=== PATIENT | male | born 1940 | race Caucasian/White ===

== ENCOUNTER 2017-06-16 06:34 | Emergency (ER) | payer MEDICARE ==
[2017-06-16 06:57] LABS: BASOPHILS 0.1 % (0-2); EOSINOPHILS 0.4 % (0-7); HEMOGLOBIN 15.8 g/dL (13.5-17.5); IMMATURE GRANULOCYTES 0.1 % (0-5); LYMPHOCYTES 16.5 % (15-50); MCH 33.2 pg (26.0-34.0); MCHC 35.9 g/dL (31.0-37.0); MCV 92.4 fL (80.0-100.0); MEAN PLATELET VOLUME 9.4 fL (7.4-10.4); MONOCYTES 4.2 % (2-11); NEUTROPHILS 78.7 % (40-80); PLATELET COUNT 251 10x3/uL (130-400); RBC 4.76 10x6/uL (4.20-6.10); RDW 12.3 % (11.5-14.5); WBC 9.6 10x3/uL (4.8-10.8)
[2017-06-16 07:10] LABS: ALBUMIN 3.9 g/dL (3.4-5.0); ANION GAP 16.5 mmol/L (8-16); CALCIUM 9.1 mg/dL (8.5-10.1); CARBON DIOXIDE 22.4 mmol/L (21.0-32.0); CREATININE - SERUM 1.1 mg/dL (0.6-1.3); POTASSIUM - SERUM 3.9 mmol/L (3.5-5.1); PROTEIN - SERUM 7.3 g/dL (6.4-8.2)
[2017-06-16 07:36] LABS: CREATINE KINASE 246 UL (21-232); MAGNESIUM - SERUM 1.8 mg/dL (1.8-2.4); T4 THYROXIN - FREE 1.09 ng/dL (0.76-1.46); THYROID STIMULATING HORMONE 4.52 uIU/mL (0.36-3.74)
[2017-06-16 07:40] LABS: TROPONIN-I 0.377 ng/mL (0.000-0.060)
[2017-06-16 07:41] LABS: CKMB 6.4 U/L (0.0-3.6)
[2017-06-16 07:48] LABS: INR 0.94 (0.85-1.17); PROTIME 12.2 SECONDS (11.6-15.0)
[2017-06-16 07:49] LABS: APTT 28.6 SECONDS (22.8-39.4)
[2017-06-16 13:13] LABS: APPEARANCE HAZY (CLEAR); COLOR YELLOW (YELLOW)
[2017-06-16 13:14] LABS: BACTERIA FEW /hpf (NONE SEEN); BILIRUBIN NEGATIVE (NEGATIVE); EPITHELIAL CELLS OCC /hpf (0-5); GLUCOSE NEGATIVE (NEGATIVE); KETONE SMALL mg/dL (NEGATIVE); MUCUS <1+ /lpf (NONE SEEN); NITRITE NEGATIVE (NEGATIVE); PROTEIN NEGATIVE (NEGATIVE); SPECIFIC GRAVITY 1.005 (1.005-1.020); UROBILINOGEN NORMAL (NORMAL); WHITE CELLS - URINE OCC /hpf (0-5)
--- NOTE | 2017-06-24 10:00 | EC ---
PATIENT:JAMSHID SANCHEZ DATE OF SERVICE: 06/16/17 SEX: M MEDICAL RECORD: [id number] DATE OF : 40 LOCATION:D.ER AGE OF PATIENT: 77 ADMISSION DATE: 06/16/17 REFERRING PHYSICIAN: INTERPRETING PHYSICIAN: MILDRED GALARZA MD ECHOCARDIOGRAM REPORT ECHO CHARGES 4 ECHO COMPLETE CLINICAL DIAGNOSIS: AFIB ECHOCARDIOGRAPHIC MEASUREMENTS (adult normal given) AC root (d.<3.7cm) 4.2 cm LV Septum d (<1.2 cm> 1.2 cm Valve Excursion 2.2 cm LV Septum (systole) 1.5 cm Left Atria (s.<4.0cm> 4.4 cm LVPW d(<1.2cm) 1.5 cm RV (d.<2.3cm) 4.4 cm LVPW (sytole) 1.7 cm LV diastole(<5.6CM) 6.0 cm MV E-F(>70mm/sec) cm LV systole 3.7 cm LVOT Diameter 1.8 cm MV exc.(>10mm) 1.4 cm Est.ejection fraction (50-75%) % Pericardial Effusion N DOPPLER: LVIT cm/sec A 95.0 cm/sec E 105 cm/sec LA cm/sec RVSP 26 mmHg LVOT 106 cm/sec AOP1/2T m/s Asc. Ao 1335 cm/sec RVOT 83 cm/sec RA cm/sec PA 102 cm/sec AV Gradient Peak 7.32 mmHg AV Mean 3.54 mmHg AV Area 2.3 cm MV Gradient Peak 5.52 mmHg MV Mean 2.14 mmHg MV Area cm COMMENTS: Production Operations Inspector: 2 JOSE GUTIERREZ Storage Solutions Architect: 4 Dr. Galarza TAPE# PACS DATE OF SERVICE: 06/16/2017 PROCEDURE: Transthoracic echocardiogram. FINDINGS: 1. Echo was difficult to visualize sharply the endocardial surfaces, but overall the structures were qualitative. 2. The left ventricle shows evidence of mild concentric left ventricular hypertrophy with inflow characteristics that are normal. The overall ejection fraction is 55%. There is no obvious regional wall motion abnormalities. ECHOCARDIOGRAM REPORT [id number] JAMSHID SANCHEZ 3. The left atrium is moderately dilated. 4. The aortic valve is grossly normal. 5. The mitral valve has mild mitral regurgitation. 6. Tricuspid valve has mild tricuspid regurgitation with normal right ventricular systolic pressures. 7. The right atrium is normal. 8. The right ventricle is mildly dilated. CONCLUSIONS: The patient has no obvious structural or valvular abnormalities with some evidence of hypertensive heart disease. TRANSINT:[id number] Voice Confirmation ID: [id number] DOCUMENT ID: [id number] 06/23/2017 Edited to correct date of service, dmm. MILDRED GALARZA MD at 1000 CC: [id number] DICTATION DATE: 06/18/17 1041 USED CAR LOT ATTENDANT: 06/18/17 1054 DEP ER 06/16/17 [facility] [address] [place] [address]
== END 2017-06-16 19:47 | disposition other institution (70) ==
LOC: D.ER 06:34
PROVIDERS: Emergency Medicine
DX: I48.91 Unspecified atrial fibrillation (principal); I10 Essential (primary) hypertension; I49.3 Ventricular premature depolarization; I63.8 Other cerebral infarction; G81.94 Hemiplegia, unspecified affecting left nondominant side

== ENCOUNTER 2018-06-23 19:01 | Emergency (ER) | payer MEDICARE ==
[~2018-06-23] VITALS: Ht 172.7 cm; Wt 81.8 kg
[2018-06-23 19:02] VITALS: Ht 172.7 cm; Wt 81.8 kg
[2018-06-23] MEDS ORDERED: LIPITOR20 MG PO (19:06)
[2018-06-23] MEDS ORDERED: NORVASC2.5 MG PO (19:06)
[2018-06-23] MEDS ORDERED: VITAMIN D2000 UNIT PO (19:07)
[2018-06-23] MEDS ORDERED: ELIQUIS5 MG PO (19:07)
[2018-06-23 21:30] LABS: BASOPHILS 0.3 % (0-2); EOSINOPHILS 1.1 % (0-7); HEMATOCRIT 42.5 % (42.0-54.0); HEMOGLOBIN 15.1 g/dL (13.5-17.5); IMMATURE GRANULOCYTES 0.3 % (0-5); LYMPHOCYTES 23.6 % (15-50); MCH 32.1 pg (26.0-34.0); MCHC 35.5 g/dL (31.0-37.0); MCV 90.2 fL (80.0-100.0); MEAN PLATELET VOLUME 9.9 fL (7.4-10.4); MONOCYTES 7.7 % (2-11); PLATELET COUNT 228 10x3/uL (130-400); RBC 4.71 10x6/uL (4.20-6.10); RDW 12.5 % (11.5-14.5); WBC 10.4 10x3/uL (4.8-10.8)
[2018-06-23 21:43] LABS: APTT 31.7 SECONDS (22.8-39.4); INR 1.09 (0.85-1.17); PROTIME 13.6 SECONDS (11.6-15.0)
[2018-06-23 21:48] LABS: ALBUMIN 3.7 g/dL (3.4-5.0); ALKALINE PHOSPHATASE 266 U/L (46-116); ALT (SGPT) 34 U/L (10-68); BILIRUBIN - TOTAL 0.96 mg/dL (0.2-1.3); CALC OSMOLALITY 279 mosm/kg (275-300); CALCIUM 9.3 mg/dL (8.5-10.1); CARBON DIOXIDE 27.7 mmol/L (21.0-32.0); CHLORIDE - SERUM 103 mmol/L (98-107); CREATININE - SERUM 0.9 mg/dL (0.6-1.3); GLUCOSE 94 mg/dL (74-106); PROTEIN - SERUM 7.3 g/dL (6.4-8.2); SODIUM 140 mmol/L (136-145); UREA NITROGEN 16 mg/dL (7-18); eGFR NON AFRICAN AMERICAN 87 mL/min (90-120)
[2018-06-23 21:59] LABS: CKMB 8.2 U/L (0.0-3.6); CREATINE KINASE 291 UL (21-232); MAGNESIUM - SERUM 1.9 mg/dL (1.8-2.4); TROPONIN-I 0.017 ng/mL (0.000-0.060)
[2018-06-23 23:11] VITALS: BP 160/92
== END 2018-06-23 23:10 | disposition home or self-care (01) ==
LOC: D.ER 19:01
PROVIDERS: Family Medicine
DX: I10 Essential (primary) hypertension (principal); R00.2 Palpitations; Z86.73 Personal history of transient ischemic attack (TIA), and cerebral infarction without residual deficits

== ENCOUNTER 2020-01-11 15:18 | Emergency (ER) | payer MEDICARE ==
[~2020-01-11] VITALS: Ht 172.7 cm; Wt 81.8 kg
[~2020-01-11 15:18] MED LIST: ELIQUIS5 MG PO; LIPITOR20 MG PO; NORVASC2.5 MG PO; VITAMIN D2000 UNIT PO
[2020-01-11 15:27] VITALS: Ht 172.7 cm; Wt 81.8 kg
[2020-01-11] MEDS ORDERED: CATAPRES0.1 MG PO (15:33)
[2020-01-11] MEDS ORDERED: PACERONE200 MG PO (15:34)
[2020-01-11] MEDS ORDERED: HYDRALAZINE HCL25 MG PO ×2 (15:34→18:49)
[2020-01-11 16:17] LABS: BASOPHILS 0.3 % (0-2); EOSINOPHILS 0.3 % (0-7); HEMATOCRIT 43.6 % (42.0-54.0); IMMATURE GRANULOCYTES 0.6 % (0-5); LYMPHOCYTES 15.6 % (15-50); MCH 32.4 pg (26.0-34.0); MCHC 34.4 g/dL (31.0-37.0); MCV 94.2 fL (80.0-100.0); MEAN PLATELET VOLUME 9.4 fL (7.4-10.4); MONOCYTES 5.2 % (2-11); PLATELET COUNT 203 10x3/uL (130-400); RBC 4.63 10x6/uL (4.20-6.10); RDW 13.6 % (11.5-14.5)
[2020-01-11 16:32] LABS: INR 0.97 (0.85-1.17); PROTIME 12.9 SECONDS (11.6-15.0)
[2020-01-11 16:33] LABS: CALC OSMOLALITY 259 mosm/kg (275-300); CALCIUM 9.3 mg/dL (8.5-10.1); CARBON DIOXIDE 30.3 mmol/L (21.0-32.0); CHLORIDE - SERUM 96 mmol/L (98-107); GLUCOSE 99 mg/dL (74-106); POTASSIUM - SERUM 3.8 mmol/L (3.5-5.1); SODIUM 130 mmol/L (136-145); UREA NITROGEN 9 mg/dL (7-18); eGFR NON AFRICAN AMERICAN 76 mL/min (90-120)
[2020-01-11 16:47] LABS: ALBUMIN 4.2 g/dL (3.4-5.0); ALKALINE PHOSPHATASE 190 U/L (30-120); ALT (SGPT) 37 U/L (10-68); BILIRUBIN - TOTAL 1.04 mg/dL (0.2-1.3); CREATINE KINASE 406 UL (21-232); MAGNESIUM - SERUM 2.1 mg/dL (1.8-2.4); PROTEIN - SERUM 7.4 g/dL (6.4-8.2)
[2020-01-11 16:51] LABS: TROPONIN-I < 0.017 ng/mL (0.000-0.060)
[2020-01-11 17:51] LABS: NITRITE NEGATIVE (NEGATIVE)
[2020-01-11 17:52] LABS: BILIRUBIN NEGATIVE (NEGATIVE); GLUCOSE NEGATIVE (NEGATIVE); KETONE NEGATIVE (NEGATIVE); UROBILINOGEN NORMAL (NORMAL)
[2020-01-11 19:05] VITALS: BP 155/78
== END 2020-01-11 19:02 | disposition home or self-care (01) ==
LOC: D.ER 15:18
PROVIDERS: Family Medicine
DX: E87.1 Hypo-osmolality and hyponatremia (principal); I10 Essential (primary) hypertension; Z86.73 Personal history of transient ischemic attack (TIA), and cerebral infarction without residual deficits; R42 Dizziness and giddiness

== ENCOUNTER 2020-01-14 21:52 | Emergency (ER) | payer MEDICARE ==
[~2020-01-14] VITALS: Ht 172.7 cm; Wt 83.6 kg
[~2020-01-14 21:52] MED LIST changes: +CATAPRES0.1 MG PO; +HYDRALAZINE HCL25 MG PO; +PACERONE200 MG PO
[2020-01-14 21:59] VITALS: Ht 172.7 cm; Wt 83.6 kg
[2020-01-14] MEDS ORDERED: HYDROCHLOROTHIA25 MG PO (22:26)
[2020-01-14 22:36] VITALS: BP 157/79
== END 2020-01-14 22:37 | disposition home or self-care (01) ==
LOC: D.ER 21:52
DX: I10 Essential (primary) hypertension (principal); Z86.73 Personal history of transient ischemic attack (TIA), and cerebral infarction without residual deficits

== ENCOUNTER 2020-01-21 08:43 | Inpatient (IN) | payer MEDICARE ==
[~2020-01-21] VITALS: Ht 172.7 cm; Wt 81.8 kg
[~2020-01-21 08:43] MED LIST changes: +HYDROCHLOROTHIA25 MG PO; +VITAMIN D1000 UNIT PO; -VITAMIN D2000 UNIT PO
[2020-01-21 09:30] VITALS: BP 160/78
[2020-01-21 10:02] LABS: BASOPHILS 0.1 % (0-2); EOSINOPHILS 0.2 % (0-7); HEMOGLOBIN 15.8 g/dL (13.5-17.5); IMMATURE GRANULOCYTES 0.7 % (0-5); LYMPHOCYTES 10.9 % (15-50); MCH 32.8 pg (26.0-34.0); MCHC 36.7 g/dL (31.0-37.0); MCV 89.4 fL (80.0-100.0); MEAN PLATELET VOLUME 9.4 fL (7.4-10.4); MONOCYTES 7.9 % (2-11); NEUTROPHILS 80.2 % (40-80); RBC 4.81 10x6/uL (4.20-6.10); RDW 12.9 % (11.5-14.5); WBC 10.1 10x3/uL (4.8-10.8)
[2020-01-21 10:03] LABS: CALC OSMOLALITY 246 mosm/kg (275-300); CALCIUM 9.1 mg/dL (8.5-10.1); CARBON DIOXIDE 28.9 mmol/L (21.0-32.0); CHLORIDE - SERUM 87 mmol/L (98-107); CREATININE - SERUM 1.1 mg/dL (0.6-1.3); GLUCOSE 136 mg/dL (74-106); INR 1.08 (0.85-1.17); SODIUM 122 mmol/L (136-145); UREA NITROGEN 9 mg/dL (7-18); eGFR NON AFRICAN AMERICAN 68 mL/min (90-120)
[2020-01-21 10:04] LABS: APTT 34.7 SECONDS (22.8-39.4)
[2020-01-21 10:06] LABS: PLATELET COUNT 245 10x3/uL (130-400)
[2020-01-21 10:18] LABS: ALKALINE PHOSPHATASE 170 U/L (30-120); ALT (SGPT) 38 U/L (10-68); BILIRUBIN - TOTAL 1.69 mg/dL (0.2-1.3); CKMB 11.5 U/L (0.0-3.6); CREATINE KINASE 385 UL (21-232); PROTEIN - SERUM 7.2 g/dL (6.4-8.2)
[2020-01-21 10:19] LABS: TROPONIN-I < 0.017 ng/mL (0.000-0.060)
--- NOTE | 2020-01-21 12:20 | NUR ---
URINE TO LAB
[2020-01-21 12:21] LABS: T4 THYROXIN - FREE 0.45 ng/dL (0.76-1.46); T4 THYROXINE 5.3 ug/dL (4.7-13.3)
[2020-01-21 12:23] VITALS: BP 172/87
[2020-01-21 12:30] VITALS: BP 160/83
[2020-01-21 12:53] LABS: BILIRUBIN NEGATIVE (NEGATIVE); GLUCOSE NEGATIVE (NEGATIVE); KETONE NEGATIVE (NEGATIVE); NITRITE NEGATIVE (NEGATIVE); UROBILINOGEN NORMAL (NORMAL)
[2020-01-21 13:07] LABS: UDS - AMPHET NEGATIVE QUAL (NEGATIVE); UDS - BARB NEGATIVE QUAL (NEGATIVE); UDS - BENZO NEGATIVE QUAL (NEGATIVE); UDS - COCAINE NEGATIVE QUAL (NEGATIVE); UDS - OPIATE NEGATIVE QUAL (NEGATIVE); UDS - PCP NEGATIVE QUAL (NEGATIVE); UDS - THC NEGATIVE QUAL (NEGATIVE)
[2020-01-21 13:30] VITALS: BP 145/79
--- NOTE | 2020-01-21 14:33 | NUR ---
ARRIVED FROM ER VIA WHEELCHAIR. SPOUSE AT BEDSIDE. ALERT AND ORIENTED. NO SIGNS OF DISTRESS. REFUSES SCD'S, TAKES ELIQUIS.
[2020-01-21 15:21] VITALS: BP 164/84; Ht 172.7 cm; Wt 81.8 kg
--- NOTE | 2020-01-21 19:00 | NUR ---
REPORT RECEIVED, WILL CONTINUE POC. PATIENT IS AAOX4, SITTING UP IN BED, AT BEDSIDE. NO S/S OF DISTRESS OBSERVED, RR EVEN AND UNLABORED ON ROOM AIR. PATIENT DENIES NEEDS AT THIS TIME. CL IN REACH, BED LOCKED AND LOWERED. WILL CTM.
[2020-01-21 20:00] VITALS: BP 160/75
[2020-01-22 00:59] VITALS: BP 135/74
--- NOTE | 2020-01-22 04:12 | NUR ---
I have reviewed this patient and I concur with the Shift Assessment completed by the Licensed Practical Nurse today this shift.
[2020-01-22 05:11] VITALS: BP 152/85
[2020-01-22 06:12] LABS: BASOPHILS 0.1 % (0-2); EOSINOPHILS 0.3 % (0-7); HEMATOCRIT 40.6 % (42.0-54.0); HEMOGLOBIN 14.5 g/dL (13.5-17.5); IMMATURE GRANULOCYTES 0.7 % (0-5); LYMPHOCYTES 18.3 % (15-50); MCH 32.2 pg (26.0-34.0); MCHC 35.7 g/dL (31.0-37.0); MEAN PLATELET VOLUME 9.6 fL (7.4-10.4); MONOCYTES 9.5 % (2-11); NEUTROPHILS 71.1 % (40-80); PLATELET COUNT 245 10x3/uL (130-400); RBC 4.51 10x6/uL (4.20-6.10); RDW 13.3 % (11.5-14.5); WBC 9.6 10x3/uL (4.8-10.8)
[2020-01-22 06:41] LABS: ALBUMIN 3.6 g/dL (3.4-5.0); ALKALINE PHOSPHATASE 157 U/L (30-120); ALT (SGPT) 34 U/L (10-68); BILIRUBIN - TOTAL 1.26 mg/dL (0.2-1.3); CALC OSMOLALITY 257 mosm/kg (275-300); CALCIUM 8.1 mg/dL (8.5-10.1); CARBON DIOXIDE 27.1 mmol/L (21.0-32.0); CHLORIDE - SERUM 94 mmol/L (98-107); GLUCOSE 96 mg/dL (74-106); POTASSIUM - SERUM 3.5 mmol/L (3.5-5.1); PROTEIN - SERUM 6.5 g/dL (6.4-8.2); SODIUM 129 mmol/L (136-145); UREA NITROGEN 11 mg/dL (7-18); eGFR NON AFRICAN AMERICAN 76 mL/min (90-120)
--- NOTE | 2020-01-22 07:15 | NUR ---
RECEIVE BEDSIDE SHIFT REPORT. ALERT AND ORIENTED. AT BEDSIDE. NO SIGNS OF DISTRESS. WILL CONTINUE PLAN OF CARE AND SAFETY PRECAUTIONS.
[2020-01-22 08:00] VITALS: BP 156/84
[2020-01-22 09:26] LABS: CKMB 6.9 U/L (0.0-3.6)
[2020-01-22 09:28] LABS: CREATINE KINASE 268 UL (21-232)
[2020-01-22 11:00] VITALS: BP 155/79
--- NOTE | 2020-01-22 12:59 | NUR ---
PATIENT STATES HE HAS RINGING IN HIS EARS AND IS FEELING FLUSHED. NEW MEDS GIVEN THIS AM WERE PROTONIX AND SYNTHROID. CALLED LALY SAUCEDO APN, SHE SAID CONTINUE TO MONITOR.
[2020-01-22 15:00] VITALS: BP 167/85
--- NOTE | 2020-01-22 19:00 | NUR ---
REPORT RECEIVED, WILL CONTINUE POC. PATIENT IS AAOX4, SITTING ON SIDE OF BED. NO S/S OF DISTRESS OBSERVED, RR EVEN AND UNLABORED ON ROOM AIR. PATIENT GETTING READY TO GET IN SHOWER. PATIENT DENIES FURTHER NEEDS AT THIS TIME. CL IN REACH, BED LOCKED AND LOWERED. AT BEDSIDE. WILL CTM.
[2020-01-22 20:00] VITALS: BP 178/85
[2020-01-23] VITALS: BP 172/97
[2020-01-23 04:00] VITALS: BP 175/85
--- NOTE | 2020-01-23 04:03 | NUR ---
I have reviewed this patient and I concur with the Shift Assessment completed by the Licensed Practical Nurse today this shift.
--- NOTE | 2020-01-23 05:43 | NUR ---
BP 175/85 ADMINISTERED PRN CLONIDINE PER ORDERS.
[2020-01-23 07:01] LABS: BASOPHILS 0.2 % (0-2); EOSINOPHILS 0.4 % (0-7); HEMOGLOBIN 14.7 g/dL (13.5-17.5); IMMATURE GRANULOCYTES 0.6 % (0-5); LYMPHOCYTES 16.4 % (15-50); MCH 32.6 pg (26.0-34.0); MCHC 35.9 g/dL (31.0-37.0); MCV 90.9 fL (80.0-100.0); MEAN PLATELET VOLUME 9.1 fL (7.4-10.4); MONOCYTES 8.8 % (2-11); NEUTROPHILS 73.6 % (40-80); PLATELET COUNT 246 10x3/uL (130-400); RBC 4.51 10x6/uL (4.20-6.10); RDW 13.5 % (11.5-14.5); WBC 9.7 10x3/uL (4.8-10.8)
[2020-01-23 07:36] LABS: ALBUMIN 3.7 g/dL (3.4-5.0); ALKALINE PHOSPHATASE 153 U/L (30-120); ALT (SGPT) 35 U/L (10-68); BILIRUBIN - TOTAL 1.25 mg/dL (0.2-1.3); CALC OSMOLALITY 266 mosm/kg (275-300); CALCIUM 8.6 mg/dL (8.5-10.1); CARBON DIOXIDE 26.1 mmol/L (21.0-32.0); CHLORIDE - SERUM 101 mmol/L (98-107); CREATINE KINASE 258 UL (21-232); CREATININE - SERUM 0.9 mg/dL (0.6-1.3); GLUCOSE 100 mg/dL (74-106); POTASSIUM - SERUM 3.3 mmol/L (3.5-5.1); PROTEIN - SERUM 6.6 g/dL (6.4-8.2); SODIUM 134 mmol/L (136-145); UREA NITROGEN 9 mg/dL (7-18); eGFR NON AFRICAN AMERICAN 86 mL/min (90-120)
[2020-01-23 08:00] VITALS: BP 179/87
[2020-01-23] MEDS ORDERED: NORVASC5 MG PO (09:44)
[2020-01-23] MEDS ORDERED: SYNTHROID50 MCG PO (09:45)
[2020-01-23] MEDS ORDERED: MIRALAX17 GM PO (09:45)
--- NOTE | 2020-01-23 09:45 | NUR ---
Rehab Prescreening Consult recieved and the chart has been reviewed. He is a good ARU candidate, but unfortunately the rehab is on a bed hold and only has a female bed available today. Will discuss in the IDT meeting this morning. Jasmin Cruz RN Clinical Liaison, Rehab
--- NOTE | 2020-01-23 11:25 | NUR ---
ASSESSMENT PER FLOW SHEET. PATIENT IS WITHOUT DISTRESS. STATES CONCERNS ABOUT DC HOME. SHE STATES SHE THINKS IT MAY BE TO EARLY. SHE HAS CONCERNS RE.. THYROID, SODIUM AND BP. INSTRUCTED I WOULD HAVE SOMEONE COME TALK WITH THEM. I SPOKE WITH MALVIN ELLSWORTH APN. SHE WILL SPEAK WITH PATIENT AND SOON.
--- NOTE | 2020-01-23 11:48 | MORECARE ---
CASE MANAGEMENT DISCHARGE SUMMARY PATIENT: JAMSHID SANCHEZ UNIT: [id number] ADM DATE: 01/21/20 AGE: 79 : 40 SEX: M ROOM/BED: D.2234 AUTHOR: WALLACE DURAN PHYSICIAN: REFERRING PHYSICIAN: BAN ESPINAL MD DATE OF SERVICE: 01/23/20 Discharge Plan Patient Name: JAMSHID SANCHEZ [facility] [facility] 1940 Planned Disposition: Home Anticipated Discharge Date: Discharge Date: Expected LOS: Initial Reviewer: [email or web address] Initial Review Date: 01/23/2020 Generated: 01/23/20 12:47 pm DCPIA - Discharge Planning Initial Assessment Updated by [email or web address]: Lakisha Hawkins on 01/23/20 11:44 am * Is the patient Alert and Oriented? Yes * PCP ULCAS * Pharmacy [facility] * Preadmission Environment Home with Family * ADLs Independent * Other Equipment WALKER IF NEEDED * Community resources currently utilized None * Additional services required to return to the preadmission environment? No * Can the patient safely return to the preadmission environment? Yes * Has this patient been hospitalized within the prior 30 days at any hospital? No Patient Name: JAMSHID SANCHEZ Page [phone] at 1148 All edits/amendments must be made on the electronic document DICTATION DATE: 01/23/20 1147 SUPERVISOR WELDING EQUIPMENT REPAIRER: EDILSON 01/23/20 1147 RPT#: [id number] DC DATE: STATUS: ADM IN [facility] [address] [place] [address] END OF REPORT
--- NOTE | 2020-01-23 11:55 | MORECARE ---
CASE MANAGEMENT DISCHARGE SUMMARY PATIENT: JAMSHID SANCHEZ UNIT: [id number] ADM DATE: 01/21/20 AGE: 79 : 40 SEX: M ROOM/BED: D.2234 AUTHOR: WALLACE DURAN PHYSICIAN: REFERRING PHYSICIAN: BAN ESPINAL MD DATE OF SERVICE: 01/23/20 Discharge Plan Patient Name: JAMSHID SANCHEZ Facility: [facility]:[place] : 1940 Planned Disposition: Home Anticipated Discharge Date: Discharge Date: Expected LOS: Initial Reviewer: [email or web address] Initial Review Date: 01/23/2020 Generated: 01/23/20 12:54 pm Comments DCP- Discharge Planning Updated by [email or web address]: Lakisha Hawkins on 01/23/20 10:[address] Patient Name: JAMSHID SANCHEZ Admission Status: ER Accout number: [id number] Admission Date: 01-21-2020 : 1940 Admission Diagnosis: Attending: CADE Current LOS: 2 Anticipated DC Date: Planned Disposition: Home Primary Insurance: MEDICARE A & B Discharge Planning Comments: CM met with patient at bedside after explaining CM role and obtaining verbal consent. CM discussed availability / needs of home health, REHAB and medical equipment. PATIENT DENIES ANY DISCHARGE NEEDS. STATES WILL BE WITH HIM AND HE IS INDEPENDANT. DOES NOT WANT HH OR REHAB. CM TO FOLLOW AND ASSIST NEEDED. PLAN TO DC TO HOME TODAY. Quantitative Software Engineer: Lakisha Hawkins DCPIA - Discharge Planning Initial Assessment Updated by [email or web address]: Lakisha Hawkins on 01/23/20 11:44 am * Is the patient Alert and Oriented? Yes * PCP LUCAS * Pharmacy [facility] * Preadmission Environment Home with Family * ADLs Independent * Other Equipment WALKER IF NEEDED * Community resources currently utilized None * Additional services required to return to the preadmission environment? No * Can the patient safely return to the preadmission environment? Yes * Has this patient been hospitalized within the prior 30 days at any hospital? No Last DP export: 01/23/20 10:48 am Patient Name: JAMSHID SANCHEZ Page [phone] at 1155 All edits/amendments must be made on the electronic document DICTATION DATE: 01/23/201153 SPIN TANK TENDER: EDILSON 01/23/20 1154 RPT#: [id number] DC DATE: STATUS: ADM IN [facility] [address] [place] [address] END OF REPORT
--- NOTE | 2020-01-23 12:59 | NUR ---
DISCHARGE INMSTRUCTIONS,STATES UNDERSTANDING.IV DCD WITH CATH TIP INTACT. WAITING FOR RIDE HOME
--- NOTE | 2020-01-23 13:28 | NUR ---
LEFT UNIT VIA WHEELCHAIR FOR TRANSPORT HOME
--- NOTE | 2020-01-25 09:12 | MORECARE ---
CASE MANAGEMENT DISCHARGE SUMMARY PATIENT: JAMSHID SANCHEZ UNIT: [id number] ADM DATE: 01/21/20 AGE: 79 : 40 SEX: M ROOM/BED: D.2234 AUTHOR: WALLACE DURAN PHYSICIAN: REFERRING PHYSICIAN: BAN ESPINAL MD DATE OF SERVICE: 01/25/20 Discharge Plan Patient Name: JAMSHID SANCHEZ Facility: [facility]:[place] : 1940 Planned Disposition: Home Anticipated Discharge Date: Discharge Date: 01/23/2020 Expected LOS: Initial Reviewer: [email or web address] Initial Review Date: 01/23/2020 Generated: 01/25/20 10:11 am Comments DCP- Discharge Planning Updated by [email or web address]: Lakisha Hawkins on 01/23/20 10:[address] Patient Name: JAMSHID SANCHEZ Admission Status: ER Accout number: [id number] Admission Date: 01-21-2020 : 1940 Admission Diagnosis: Attending: CADE Current LOS: 2 Anticipated DC Date: Planned Disposition: Home Primary Insurance: MEDICARE A & B Discharge Planning Comments: CM met with patient at bedside after explaining CM role and obtaining verbal consent. CM discussed availability / needs of home health, REHAB and medical equipment. PATIENT DENIES ANY DISCHARGE NEEDS. STATES WILL BE WITH HIM AND HE IS INDEPENDANT. DOES NOT WANT HH OR REHAB. CM TO FOLLOW AND ASSIST NEEDED. PLAN TO DC TO HOME TODAY. Cottrell Blower: Lakisha Hawkins DCPIA - Discharge Planning Initial Assessment Updated by [email or web address]: Lakisha Hawkins on 01/23/20 11:44 am * Is the patient Alert and Oriented? Yes * PCP LUCAS * Pharmacy [facility] * Preadmission Environment Home with Family * ADLs Independent * Other Equipment WALKER IF NEEDED * Community resources currently utilized None * Additional services required to return to the preadmission environment? No * Can the patient safely return to the preadmission environment? Yes * Has this patient been hospitalized within the prior 30 days at any hospital? No Last DP export: 01/23/20 10:55 am Patient Name: JAMSHID SANCHEZ Page [phone] at 0912 All edits/amendments must be made on the electronic document DICTATION DATE: 01/25/20910 ONLINE TRADER: EDILSON 01/25/20910 RPT#: [id number] DC DATE:01/23/20 STATUS: DIS IN [facility] [address] [facility] [place] [address] END OF REPORT
== END 2020-01-23 13:28 | disposition home or self-care (01) | DRG 644 ==
LOC: D.ER 08:43 → D.M2 12:38 → D.MS 01-23 09:57
PROVIDERS: Family Medicine; ADMIT Family Medicine; ATTEND Family Medicine
DX: E03.9 Hypothyroidism, unspecified (principal); E87.1 Hypo-osmolality and hyponatremia; G72.89 Other specified myopathies; I10 Essential (primary) hypertension; I48.91 Unspecified atrial fibrillation; G31.9 Degenerative disease of nervous system, unspecified

== ENCOUNTER → 2020-02-13 10:01 | Outpatient (CLI) | payer MEDICARE ==
[2020-01-21 15:21] VITALS: BMI 27.4
[~2020-02-13 10:01] MED LIST changes: +MIRALAX17 GM PO; +NORVASC5 MG PO; +SYNTHROID50 MCG PO
== END | disposition home or self-care (01) ==
LOC: D.HCCECHO 01-24 13:00
PROVIDERS: ATTEND Internal Medicine Interventional Cardiology
DX: I10 Essential (primary) hypertension (principal); I48.91 Unspecified atrial fibrillation

== ENCOUNTER 2020-03-30 08:33 | Inpatient (IN) | payer MEDICARE ==
[~2020-03-30] VITALS: Ht 172.7 cm; Wt 81.8 kg
[2020-03-30] MEDS ORDERED: MULTIVITAMINS (08:40)
[2020-03-30 09:53] LABS: BASOPHILS 0.1 % (0-2); EOSINOPHILS 0 % (0-7); HEMATOCRIT 41.2 % (42.0-54.0); HEMOGLOBIN 14.3 g/dL (13.5-17.5); IMMATURE GRANULOCYTES 0.3 % (0-5); LYMPHOCYTES 4.1 % (15-50); MCH 32.3 pg (26.0-34.0); MCHC 34.7 g/dL (31.0-37.0); MEAN PLATELET VOLUME 9.6 fL (7.4-10.4); MONOCYTES 9.5 % (2-11); PLATELET COUNT 201 10x3/uL (130-400); RBC 4.43 10x6/uL (4.20-6.10); RDW 12.9 % (11.5-14.5)
[2020-03-30 10:01] LABS: INR 1.22 (0.85-1.17); PROTIME 15.3 SECONDS (11.6-15.0)
[2020-03-30 10:02] LABS: CALC OSMOLALITY 259 mosm/kg (275-300); CALCIUM 8.5 mg/dL (8.5-10.1); CARBON DIOXIDE 24.9 mmol/L (21.0-32.0); CHLORIDE - SERUM 98 mmol/L (98-107); CREATININE - SERUM 1.1 mg/dL (0.6-1.3); GLUCOSE 129 mg/dL (74-106); SODIUM 129 mmol/L (136-145); UREA NITROGEN 10 mg/dL (7-18); eGFR NON AFRICAN AMERICAN 68 mL/min (90-120)
[2020-03-30 10:19] LABS: ALBUMIN 3.3 g/dL (3.4-5.0); ALKALINE PHOSPHATASE 144 U/L (30-120); ALT (SGPT) 23 U/L (10-68); AMYLASE - SERUM 25 U/L (25-115); BILIRUBIN - TOTAL 1.35 mg/dL (0.2-1.3); CKMB 0.9 U/L (0.0-3.6); CREATINE KINASE 144 UL (21-232); LIPASE 69 U/L (73-393); PROTEIN - SERUM 7.1 g/dL (6.4-8.2)
[2020-03-30 10:22] LABS: TROPONIN-I < 0.017 ng/mL (0.000-0.060)
[2020-03-30 11:10] VITALS: BP 144/79
--- NOTE | 2020-03-30 11:50 | NUR ---
patient resting well, spouse at bedside, vital signs stable, no complaints at this time, denies pain.
[2020-03-30 11:51] VITALS: BP 139/73
--- NOTE | 2020-03-30 12:00 | NUR ---
urine sent to the lab at this time
[2020-03-30 12:42] LABS: BILIRUBIN NEGATIVE (NEGATIVE); KETONE SMALL mg/dL (NEGATIVE); NITRITE NEGATIVE (NEGATIVE); UROBILINOGEN NORMAL mg/dL (< 2)
[2020-03-30 12:44] LABS: BACTERIA FEW HPF (NONE SEEN); WHITE CELLS - URINE 0-5 HPF (0-1)
--- NOTE | 2020-03-30 14:26 | NUR ---
ARRIVES TO UNIT PER STRETCHER FROM ER, IV INFUSING, NO DISTRESS NOTED, FAMILY PRESENT
[2020-03-30] MEDS ORDERED: ELIQUIS5 MG PO (14:29)
[2020-03-30] MEDS ORDERED: LEVO-T112 MCG PO (14:31)
[2020-03-30] MEDS ORDERED: TOZAL SOFTGEL1 EACH PO (14:33)
[2020-03-30] MEDS ORDERED: COZAAR25 MG PO (14:35)
[2020-03-30 14:47] VITALS: BP 177/81; Ht 172.7 cm; Wt 81.8 kg
[2020-03-30 20:00] VITALS: BP 164/78
[2020-03-31] VITALS: BP 151/78
--- NOTE | 2020-03-31 03:06 | NUR ---
I have reviewed this patient and I concur with the Shift Assessment completed by the Licensed Practical Nurse today this shift.
[2020-03-31 04:00] VITALS: BP 131/56
[2020-03-31 05:01] LABS: BASOPHILS 0.2 % (0-2); EOSINOPHILS 0.1 % (0-7); HEMATOCRIT 36.7 % (42.0-54.0); HEMOGLOBIN 12.7 g/dL (13.5-17.5); IMMATURE GRANULOCYTES 0.2 % (0-5); LYMPHOCYTES 7.3 % (15-50); MCH 31.8 pg (26.0-34.0); MCHC 34.6 g/dL (31.0-37.0); MEAN PLATELET VOLUME 9.7 fL (7.4-10.4); MONOCYTES 13.4 % (2-11); NEUTROPHILS 78.8 % (40-80); PLATELET COUNT 202 10x3/uL (130-400); RBC 3.99 10x6/uL (4.20-6.10); RDW 12.8 % (11.5-14.5)
[2020-03-31 05:03] LABS: WBC 10.9 10x3/uL (4.8-10.8)
[2020-03-31 05:13] LABS: ALBUMIN 2.8 g/dL (3.4-5.0); ALKALINE PHOSPHATASE 109 U/L (30-120); ALT (SGPT) 21 U/L (10-68); BILIRUBIN - TOTAL 1.16 mg/dL (0.2-1.3); CALC OSMOLALITY 264 mosm/kg (275-300); CARBON DIOXIDE 23.3 mmol/L (21.0-32.0); CHLORIDE - SERUM 99 mmol/L (98-107); GLUCOSE 119 mg/dL (74-106); MAGNESIUM - SERUM 1.9 mg/dL (1.8-2.4); POTASSIUM - SERUM 3.4 mmol/L (3.5-5.1); PROTEIN - SERUM 6.2 g/dL (6.4-8.2); SODIUM 132 mmol/L (136-145); UREA NITROGEN 9 mg/dL (7-18)
[2020-03-31 05:23] LABS: CREATININE - SERUM 0.8 mg/dL (0.6-1.3); eGFR NON AFRICAN AMERICAN > 90 mL/min (90-120)
--- NOTE | 2020-03-31 07:32 | NUR ---
PT IS RESTING IN BED WITH EYES OPEN. RESPIRATIONS ARE EVEN AND UNLABORED. PT IS AAO X 4 AND DENIES PRESENCE OT DIZZINESS/DYSPNEA/N/V/PAIN AT THIS TIME. PT STATES "I FEEL SO MUCH BETTER THAN I DID YESTERDAY. I FEEL REALLY GOOD RIGHT NOW". DROPLET PRECAUTIONS IN PLACE. INCENTIVE SPIROMETER WITHIN REACH AND ENCOURAGED. SPOUSE IS AT BEDSIDE. PIV TO LEFT HAND INFUSING WITHOUT DIFFICULTY PER ORDER. BED IS IN THE LOWEST POSITION. CALL LIGHT AND BEDSIDE TABLE ARE WITHIN REACH. SIDE RAILS X 2. PT AND PT SPOUSE DENY FURTHER NEEDS. WILL CONT TO MONITOR.
[2020-03-31 08:00] VITALS: BP 121/61
--- NOTE | 2020-03-31 16:06 | NUR ---
DROPLET PRECAUTIONS DISCONTINUED. COVID TEST IS NEGATIVE SEE LAB RESULTS.
[2020-03-31 16:21] VITALS: BP 163/67
--- NOTE | 2020-03-31 18:38 | NUR ---
PT STATES THAT HE IS FEELING "LIKE ARPIT BEEN RAN OVER BY A TRUCK". PT STATES THAT HE BELIEVES THAT HIS FEVER IS RETURNING. ORAL TEMP IS 99.8 AT THIS TIME. PT DENIES PRESENCE OF PAIN/N/V/DYSPNEA AT THIS TIME. O2 SAT IS 98% ON ROOM AIR. INCENTIVE SPIROEMTER AND FLUTTER VALVE AT BEDSIDE AND ENCOURAGED. SPOUSE IS AT BEDSIDE. PT AND PT SPOUSE VERBALIZE UNDERSTANDING. BED IS IN THE LOWEST POSITION. CALL LIGHT AND BEDSIDE TABLE ARE WITHIN REACH. SIDE RAILS X 2. WILL CONT TO MONITOR.
--- NOTE | 2020-03-31 19:00 | NUR ---
REPORT GIVEN BY AIDE PEDROZA
--- NOTE | 2020-03-31 19:45 | NUR ---
DROPPED BY PT ROOM TO INTRODUCE SELF. EXPLAINED THAT I WOULD BE BACK TO DO COMPLETE ASSESSMENT.
[2020-03-31 20:00] VITALS: BP 138/71
--- NOTE | 2020-03-31 21:30 | NUR ---
ASSESSMENT COMPLETED. PT AND HIS WERE SLEEPING. PT HAS NO C/O AT THIS TIME. PT HAD SOME RLL CRACKLES. HE IS UP AD DIDI IN HIS ROOM. IS ON RA AND NOT HAVING PROBLEMS BREATHING. HE IS ON TELE. HIS IV IS IN HIS LEFT HAND WITH NS AT 100 ML/HR.
--- NOTE | 2020-03-31 22:30 | NUR ---
PT IS RESTING WITH HIS EYES CLOSED. RESPIRATIONS EVEN AND NO DISTRESS.
[2020-04-01] VITALS: BP 123/54
--- NOTE | 2020-04-01 00:15 | NUR ---
RESTING QUIETLY WITHOUT C/O OR NEEDS.
--- NOTE | 2020-04-01 02:10 | NUR ---
CONT. TO BE SLEEPING.
[2020-04-01 04:00] VITALS: BP 115/60
--- NOTE | 2020-04-01 04:41 | NUR ---
RESTING QUIETLY. NO C/O
[2020-04-01 05:19] LABS: BASOPHILS 0.3 % (0-2); EOSINOPHILS 1.1 % (0-7); HEMATOCRIT 32.6 % (42.0-54.0); HEMOGLOBIN 11.2 g/dL (13.5-17.5); IMMATURE GRANULOCYTES 0.2 % (0-5); LYMPHOCYTES 18.2 % (15-50); MCH 31.6 pg (26.0-34.0); MCHC 34.4 g/dL (31.0-37.0); MCV 92.1 fL (80.0-100.0); MEAN PLATELET VOLUME 9.5 fL (7.4-10.4); MONOCYTES 15.3 % (2-11); NEUTROPHILS 64.9 % (40-80); PLATELET COUNT 180 10x3/uL (130-400); RBC 3.54 10x6/uL (4.20-6.10); RDW 12.7 % (11.5-14.5); WBC 9.1 10x3/uL (4.8-10.8)
[2020-04-01 05:29] LABS: ALBUMIN 2.5 g/dL (3.4-5.0); ALKALINE PHOSPHATASE 96 U/L (30-120); ALT (SGPT) 24 U/L (10-68); BILIRUBIN - TOTAL 0.65 mg/dL (0.2-1.3); CALC OSMOLALITY 263 mosm/kg (275-300); CALCIUM 7.4 mg/dL (8.5-10.1); CARBON DIOXIDE 25.5 mmol/L (21.0-32.0); CHLORIDE - SERUM 101 mmol/L (98-107); GLUCOSE 101 mg/dL (74-106); MAGNESIUM - SERUM 1.8 mg/dL (1.8-2.4); POTASSIUM - SERUM 3.5 mmol/L (3.5-5.1); PROTEIN - SERUM 5.6 g/dL (6.4-8.2); SODIUM 132 mmol/L (136-145); UREA NITROGEN 9 mg/dL (7-18); eGFR NON AFRICAN AMERICAN 76 mL/min (90-120)
--- NOTE | 2020-04-01 06:57 | NUR ---
PT RESTING QUIETLY. NO C/O
[2020-04-01 08:22] VITALS: BP 145/70
[2020-04-01 12:46] VITALS: BP 120/62
[2020-04-01 17:56] VITALS: BP 152/68
[2020-04-01 20:00] VITALS: BP 142/69
--- NOTE | 2020-04-01 20:00 | NUR ---
PT SITTING UP IN BED WTIHOUT DISTRESS, AOX4. AT BEDSIDE. ON ROOM AIR. LEFT HAND IV SL. DENIES NEEDS AT THIS TIME. CL IN REACH, WILL CTM
[2020-04-02] VITALS: BP 122/54
[2020-04-02 04:00] VITALS: BP 123/71
[2020-04-02 06:25] LABS: BASOPHILS 0.3 % (0-2); HEMATOCRIT 31.1 % (42.0-54.0); HEMOGLOBIN 10.8 g/dL (13.5-17.5); IMMATURE GRANULOCYTES 0.7 % (0-5); LYMPHOCYTES 17.7 % (15-50); MCH 31.8 pg (26.0-34.0); MCHC 34.7 g/dL (31.0-37.0); MCV 91.5 fL (80.0-100.0); MEAN PLATELET VOLUME 9.5 fL (7.4-10.4); MONOCYTES 13.8 % (2-11); NEUTROPHILS 64.5 % (40-80); PLATELET COUNT 209 10x3/uL (130-400); RDW 13.2 % (11.5-14.5); WBC 7.4 10x3/uL (4.8-10.8)
[2020-04-02 06:41] LABS: ALBUMIN 2.6 g/dL (3.4-5.0); ALKALINE PHOSPHATASE 94 U/L (30-120); ALT (SGPT) 28 U/L (10-68); BILIRUBIN - TOTAL 0.54 mg/dL (0.2-1.3); CALC OSMOLALITY 270 mosm/kg (275-300); CALCIUM 7.8 mg/dL (8.5-10.1); CARBON DIOXIDE 23.5 mmol/L (21.0-32.0); CHLORIDE - SERUM 104 mmol/L (98-107); CREATININE - SERUM 0.8 mg/dL (0.6-1.3); GLUCOSE 108 mg/dL (74-106); POTASSIUM - SERUM 3.4 mmol/L (3.5-5.1); PROTEIN - SERUM 5.7 g/dL (6.4-8.2); SODIUM 136 mmol/L (136-145); UREA NITROGEN 8 mg/dL (7-18); eGFR NON AFRICAN AMERICAN > 90 mL/min (90-120)
[2020-04-02 09:11] VITALS: BP 133/63
--- NOTE | 2020-04-02 09:20 | MORECARE ---
CASE MANAGEMENT DISCHARGE SUMMARY PATIENT: JAMSHID SANCHEZ UNIT: [id number] ADM DATE: 03/30/20 AGE: 79 : 40 SEX: M ROOM/BED: D.2210 AUTHOR: WALLACE DURAN PHYSICIAN: REFERRING PHYSICIAN: BAN ESPINAL MD DATE OF SERVICE: 04/02/20 Discharge Plan Patient Name: JAMSHID SANCHEZ Facility: [facility]:[place] : 1940 Planned Disposition: Home or Self Care Anticipated Discharge Date: Discharge Date: Expected LOS: Initial Reviewer: [email or web address] Initial Review Date: 03/30/2020 Generated: 04/02/20 10:19 am DCPIA - Discharge Planning Initial Assessment Updated by [email or web address]: Destinee Santana on 04/02/20 9:18 am * Is the patient Alert and Oriented? Yes * How many steps to enter\exit or inside your home? * PCP LUCAS * Pharmacy [facility] * Preadmission Environment Home with Family * ADLs Independent * Equipment None * List name and contact numbers for known caregivers / representatives who currently or will assist patient after discharge: ARIELA SANCHEZ ( ) [phone] * Verbal permission to speak to the caregivers and representatives has been obtained from the patient. N/A * Community resources currently utilized None * Additional services required to return to the preadmission environment? No * Can the patient safely return to the preadmission environment? Yes * Has this patient been hospitalized within the prior 30 days at any hospital? No Coverage Notice Reviewer: [email or web address] - Destinee Santana Notice Issued Date-Time: 04/01/2020 12:40 Notice Type: IM Discharge Notice Notice Delivered To: Patient Relationship to Patient: Doubling Machine Operator Name: Delivery Method: HAND - Hand Delivered Makeda Days: Prior Verbal Notification: Recipient Understood Notice: Yes Recipient Signature: Yes Med Rec Note Co-signed by Attending: Coverage Notice Comment: Patient Name: JAMSHID SANCHEZ Page 36501 at 0920 All edits/amendments must be made on the electronic document DICTATION DATE: 04/02/20918 CLAMP REMOVER: EDILSON 04/02/20918 RPT#: [id number] DC DATE: STATUS: ADM IN [facility] [address] [place] [address] END OF REPORT
[2020-04-02] MEDS ORDERED: OMNICEF300 MG PO (09:23)
[2020-04-02] MEDS ORDERED: MUCINEX600 MG PO (09:23)
[2020-04-02] MEDS ORDERED: TESSALON PERLE100 MG PO (09:23)
[2020-04-02] MEDS ORDERED: ZITHROMAX500 MG PO (09:24)
--- NOTE | 2020-04-02 09:26 | MORECARE ---
CASE MANAGEMENT DISCHARGE SUMMARY PATIENT: JAMSHID SANCHEZ UNIT: [id number] ADM DATE: 03/30/20 AGE: 79 : 40 SEX: M ROOM/BED: D.2210 AUTHOR: ROGER,DOC PHYSICIAN: REFERRING PHYSICIAN: BAN ESPINAL MD DATE OF SERVICE: 04/02/20 Discharge Plan Patient Name: JAMSHID SANCHEZ Facility: [facility]:[place] : 1940 Planned Disposition: Home or Self Care Anticipated Discharge Date: Discharge Date: Expected LOS: Initial Reviewer: [email or web address] Initial Review Date: 03/30/2020 Generated: 04/02/20 10:25 am Comments DCP- Discharge Planning Updated by [email or web address]: Destinee Santana on 04/02/20 8:[address] LATE ENTRY 04/01/20 @ 1240 Patient Name: JAMSHID SANCHEZ Admission Status: ER Accout number: [id number] Admission Date: 03-30-2020 : 1940 Admission Diagnosis:PNEUMONIA, UNSPECIFIED ORGANISM Attending: CADE Current LOS: 3 Anticipated DC Date: Planned Disposition: Home or Self Care Primary Insurance: MEDICARE A & B Discharge Planning Comments: CM met with patient and spouse to complete initial dc planning assessment. CM educated patient on the CM role and verbal consent given by patient to complete assessment. Patient lives at home with his where he is independent with his care. At discharge patient plans to return home and feels this is a safe discharge. CM discussed availability of home health, rehab services, and medical equipment. He does not use any DME. His daughter will be his route sales driver home. IMM served and explained to them. Patient denied known discharge needs at this time. CM will continue to follow and will assist as needed with dc plans/needs. Mis Specialist: Destinee Santana DCPIA - Discharge Planning Initial Assessment Updated by [email or web address]: Destinee Santana on 04/02/20 9:18 am * Is the patient Alert and Oriented? Yes * How many steps to enter\exit or inside your home? * PCP LUCAS * Pharmacy [facility] * Preadmission Environment Home with Family * ADLs Independent * Equipment None * List name and contact numbers for known caregivers / representatives who currently or will assist patient after discharge: ARIELA SANCHEZ ( ) [phone] * Verbal permission to speak to the caregivers and representatives has been obtained from the patient. N/A * Community resources currently utilized None * Additional services required to return to the preadmission environment? No * Can the patient safely return to the preadmission environment? Yes * Has this patient been hospitalized within the prior 30 days at any hospital? No Coverage Notice Reviewer: [id number] Margret Santana Notice Issued Date-Time: 04/01/2020 12:40 Notice Type: IM Discharge Notice Notice Delivered To: Patient Relationship to Patient: Partition Making Machine Operator Name: Delivery Method: HAND - Hand Delivered Makeda Days: Prior Verbal Notification: Recipient Understood Notice: Yes Recipient Signature: Yes Med Rec Note Co-signed by Attending: Coverage Notice Comment: Last DP export: 04/02/20 8:20 Patient Name: JAMSHID SANCHEZ Page [phone] at 0926 All edits/amendments must be made on the electronic document DICTATION DATE: 04/02/20925 AGILE BUSINESS ANALYST: EDILSON 04/02/20925 RPT#: [id number] DC DATE: STATUS: ADM IN [facility] [address] [place] [address] END OF REPORT
[2020-04-02 11:36] VITALS: BP 130/60
--- NOTE | 2020-04-02 13:07 | NUR ---
DISCHARGE TEACHING COMPLETE. NO FURTHER QUESTIONS. IV CATH REMOVED FROM LEFT HAND. CATH TIP INTACT. GATHERING BELONGINGS, AWAITING RIDE TO GET HERE.
--- NOTE | 2020-04-02 13:36 | NUR ---
PATIENT LEFT UNIT VIA WHEELCHAIR TO HOME.
--- NOTE | 2020-04-04 10:51 | MORECARE ---
CASE MANAGEMENT DISCHARGE SUMMARY PATIENT: JAMSHID SANCHEZ UNIT: [id number] ADM DATE: 03/30/20 AGE: 79 : 40 SEX: M ROOM/BED: D.2210 AUTHOR: ROGER,DOC PHYSICIAN: REFERRING PHYSICIAN: BAN ESPINAL MD DATE OF SERVICE: 04/04/20 Discharge Plan Patient Name: JAMSHID SANCHEZ Facility: [facility]:[place] : 1940 Planned Disposition: Home or Self Care Anticipated Discharge Date: Discharge Date: 04/02/2020 Expected LOS: 0 Initial Reviewer: [email or web address] Initial Review Date: 03/30/2020 Generated: 04/04/20 11:50 am Comments DCP- Discharge Planning Updated by [email or web address]: Destinee Santana on 04/02/20 8:[address] LATE ENTRY 04/01/20 @ 1240 Patient Name: JAMSHID SANCHEZ Admission Status: ER Accout number: [id number] Admission Date: 03-30-2020 : 1940 Admission Diagnosis:PNEUMONIA, UNSPECIFIED ORGANISM Attending: CADE Current LOS: 3 Anticipated DC Date: Planned Disposition: Home or Self Care Primary Insurance: MEDICARE A & B Discharge Planning Comments: CM met with patient and spouse to complete initial dc planning assessment. CM educated patient on the CM role and verbal consent given by patient to complete assessment. Patient lives at home with his where he is independent with his care. At discharge patient plans to return home and feels this is a safe discharge. CM discussed availability of home health, rehab services, and medical equipment. He does not use any DME. His daughter will be his rental car ferry driver home. IMM served and explained to them. Patient denied known discharge needs at this time. CM will continue to follow and will assist as needed with dc plans/needs. Rand Maker: Destinee Santana DCPIA - Discharge Planning Initial Assessment Updated by [email or web address]: Destinee Santana on 04/02/20 9:18 am * Is the patient Alert and Oriented? Yes * How many steps to enter\exit or inside your home? * PCP LUCAS * Pharmacy [facility] * Preadmission Environment Home with Family * ADLs Independent * Equipment None * List name and contact numbers for known caregivers / representatives who currently or will assist patient after discharge: ARIELA SANCHEZ ( ) [phone] * Verbal permission to speak to the caregivers and representatives has been obtained from the patient. N/A * Community resources currently utilized None * Additional services required to return to the preadmission environment? No * Can the patient safely return to the preadmission environment? Yes * Has this patient been hospitalized within the prior 30 days at any hospital? No Coverage Notice Reviewer: [email or web address] Margret Santana Notice Issued Date-Time: 04/01/2020 12:40 Notice Type: IM Discharge Notice Notice Delivered To: Patient Relationship to Patient: Pensionholder Information Clerk Name: Delivery Method: HAND - Hand Delivered Makeda Days: Prior Verbal Notification: Recipient Understood Notice: Yes Recipient Signature: Yes Med Rec Note Co-signed by Attending: Coverage Notice Comment: Last DP export: 04/02/20 8:26 Patient Name: JAMSHID SANCHEZ Page [phone] at 1051 All edits/amendments must be made on the electronic document DICTATION DATE: 04/04/20 1050 SUPERVISOR STERILE PROCESSING: EDILSON 04/04/20 1050 RPT#: [id number] DC DATE:04/02/20 STATUS: DIS IN [facility] [address] [place] [address] END OF REPORT
== END 2020-04-02 13:36 | disposition home or self-care (01) | DRG 194 ==
LOC: D.ER 08:33 → D.MS 13:32
PROVIDERS: Family Medicine; ADMIT Family Medicine; ATTEND Family Medicine
DX: J18.9 Pneumonia, unspecified organism (principal); E87.1 Hypo-osmolality and hyponatremia; J98.11 Atelectasis; E03.9 Hypothyroidism, unspecified; I10 Essential (primary) hypertension; I48.91 Unspecified atrial fibrillation; R10.9 Unspecified abdominal pain; D72.829 Elevated white blood cell count, unspecified; E87.6 Hypokalemia; D64.9 Anemia, unspecified; Z79.01 Long term (current) use of anticoagulants; K57.90 Diverticulosis of intestine, part unspecified, without perforation or abscess without bleeding; Z86.73 Personal history of transient ischemic attack (TIA), and cerebral infarction without residual deficits

== ENCOUNTER → 2020-09-29 09:01 | Outpatient (CLI) | payer MEDICARE ==
[2020-03-30 14:47] VITALS: BMI 27.4
--- NOTE | ~2020-09-29 | EC ---
PATIENT:JAMSHID SANCHEZ DATE OF SERVICE: 09/29/20 SEX: M MEDICAL RECORD: [id number] DATE OF : 40 [facility] AGE OF PATIENT: 80 ADMISSION DATE: 09/29/20 REFERRING PHYSICIAN: INTERPRETING PHYSICIAN: BAN CISNEROS MD ECHOCARDIOGRAM REPORT ECHO CHARGES 4 ECHO COMPLETE Date: 09/29/20 CLINICAL DIAGNOSIS: HEART MURMUR ECHOCARDIOGRAPHIC MEASUREMENTS (adult normal given) AC root (d.<3.7cm) 4.2 cm LV Septum d (<1.2 cm> 1.4 cm Valve Excursion 2.0 cm LV Septum (systole) 1.8 cm Left Atria (s.<4.0cm> 3.8 cm LVPW d(<1.2cm) 1.5 cm RV (d.<2.3cm) 4.0 cm LVPW (sytole) 1.8 cm LV diastole(<5.6CM) 5.0 cm MV E-F(>70mm/sec) cm LV systole 3.5 cm LVOT Diameter 2.0 cm MV exc.(>10mm) 1.4 cm Est.ejection fraction (50-75%) % DOPPLER: LVIT cm/sec A 97.0 cm/sec E 85.0 cm/sec LA cm/sec RVSP 21 mmHg LVOT 103 cm/sec AOP1/2T m/s Asc. Ao 158 cm/sec RVOT 64 cm/sec RA cm/sec PA 110 cm/sec AV Gradient Peak 9.95 mmHg AV Mean 4.47 mmHg AV Area 2.2 cm MV Gradient Peak 4.31 mmHg MV Mean 1.32 mmHg MV Area cm COMMENTS: Production Line Manager: 2 JOSE GUTIERREZ Reclamation Kettle Tender: 3 Dr. Baptiste TAPE# PACS Pericardial Effusion N DATE OF SERVICE: Adequate 2D, color-flow imaging, spectral Doppler, and M-Mode. FINDINGS: LVH is present. LV internal dimensions are normal. Wall motion is normal. EF is greater than or equal to 55%. Aortic valve is sclerotic. No evidence of stenosis by Doppler interrogation. Left atrium is normal at 3.2 cm. Mitral valve shows no prolapse. Trace MR. Right side is grossly normal. Mild TR. TRANSINT:[id number] Voice Confirmation ID: [id number] DOCUMENT ID: [id number] ECHOCARDIOGRAM REPORT [id number] JAMSHID SANCHEZ [place] A MD CC: [id number] DICTATION DATE: 09/30/20 1448 MOLD SHEET CLEANER: 09/30/202028 DEP CLI 09/29/20 [place] [id number]
[~2020-09-29 09:01] MED LIST changes: +COZAAR25 MG PO; +LEVO-T112 MCG PO; +MUCINEX600 MG PO; +MULTIVITAMINS; +OMNICEF300 MG PO; +TESSALON PERLE100 MG PO; +TOZAL SOFTGEL1 EACH PO; +ZITHROMAX500 MG PO
== END | disposition home or self-care (01) ==
LOC: D.HCCARDIO 09:01 → D.HCCECHO 11:00
PROVIDERS: ATTEND Internal Medicine Cardiovascular Disease
DX: I20.9 Angina pectoris, unspecified (principal)

== ENCOUNTER 2020-10-13 06:53 | Day surgery (SDC) | payer MEDICARE ==
--- NOTE | ~2020-10-13 | HEMODYNAMI ---
PATIENT:JAMSHID SANCHEZ MEDICAL RECORD: [id number] : 40 LOCATION:[facility] ADMISSION DATE: 10/13/20 Generatedon:19:08 Patient name: JAMSHID SANCHEZ Patient #: [id number] SSN: [id number] : 1940 Date of study: 10/13/2020 Page: Of Hemodynamic Procedure Report Patient Data Patient Demographics Procedure consent was obtained First Name: JAMSHID Gender: Male Last Name: LAURA : 1940 [facility] Initial: R Age: 80 year(s) Patient #: [id number] Race: SSN: [id number] Additional ID: [id number] Contact details Address: [address] [place] [address] [place] State: [place] City: [place] Zip code: [address] Past Medical History Performed procedures and imaging results Date Procedure Procedure Results Comments 09/29/2020 Stress testing Positive->Intermediate with SPECT MPI risk Allergies: No known allergies Admission Admission Data Admission Date: 10/13/2020 Admission Time: 6:53 Arrival Date: 10/13/2020 Arrival Time: 0:00 Admit Source: Other Insurance Payor: Medicare [facility] #: [id number] Procedure Procedure Types Cath Procedure Diagnostic Procedure [facility] w/Coronaries FFR/IVUS FFR Initial Sedation Charges Moderate Sedation 25-39 minutes PCI Procedure Coronary Stent Hemochron ACT Test Procedure Description Procedure Date Procedure Date: 10/13/2020 Procedure Start Time: 8:25 Procedure End Time: 9:06 Procedure Staff Name Function Samson Graham MD Performing Physician Mary Real RT Monitor Josephine Zamora RT Scrub Katie Saleh RT Monitor Mary Hill RN Nurse Procedure Data Cath Procedure Fluoroscopy Diagnostic fluoroscopy Total fluoroscopy Time: 7.3 time: 7.3 min min Diagnostic fluoroscopy Total fluoroscopy dose: 982 dose: 982 mGy mGy Contrast Material Contrast Material Type Amount (ml) Isovue 300 92 Entry Location Entry Primary Successful Side Size Upsize Upsize Entry Closure Succes sful Closure Location (Fr) 1 (Fr) 2 (Fr) Remarks Device Remarks Radial Right 6 Fr artery Short Femoral Right 5 Fr 6 Fr artery Short Estimated blood loss: 10 ml Diagnostic catheters Device Type Used For End Catheter Placement DIAGNOSTIC Burdine 110cm 5 Procedure Fr catheter ([id number]) MULTIPACK JL 4.0 5Fr Procedure catheter MULTIPACK 3DRC 5Fr Procedure catheter MULTIPACK Pigtail 5 Fr Ventriculography catheter Procedure Complications No complications Procedure Medications Medication Administration Route Dosage Oxygen etCO2 Nasal cannula 2 l/min 0.9% NaCl I.V. bolus 100 ml/hr Lidocaine 2% added to field 20 Heparin Flush Bag added to field 2 bags (1000units/500ml NS) Radial Cocktail added to field 1 syringe (Verapamil 2mg/Nitro 400mcg/Heparin 1500units) Versed I.V. 1 mg Fentanyl I.V. 50 mcg Versed I.V. 1 mg Fentanyl I.V. 50 mcg Heparin Bolus I.V. 5000 units Integrilin (Bolus I.V. 7.9 ml 2mg/ml) Vasotec 2.5 mg Plavix P.O. 600 mg Clonidine P.O. 0.1 mg Hemodynamics Rest Heart Rate: 56 (bpm) Pressure Samples Time Site Value (mmHg) Purpose Heart Use Rate(bpm) 8:32 LV 140/14,14 Snapshot 114 Snapshots Pre Cath Intra NCS Post Cath Vital Signs Time Heart Resp SPO2 etCO2 NIBP (mmHg) Rhythm Pain Sedation Rate (ipm) (%) (mmHg) Status Level (bpm) 8:14:26 54 12 100 0 169/87(151) NSR 0 (11) 10(A) , No pain 8:25:51 60 10 95 18.7 132/77(98) NSR 0 (11) 10(A) , No pain 8:39:52 60 12 99 32.9 142/87(129) NSR 0 (11) 9(A) , No pain 8:44:23 62 12 98 36.7 144/91(125) NSR 0 (11) 9(A) , No pain 8:50:09 65 13 99 30 215/106(154) NSR 0 (11) 9(A) , No pain 8:52:18 63 17 99 34.5 212/104(134) NSR 0 (11) 9(A) , No pain 8:54:42 67 24 98 33.7 202/103(174) NSR 0 (11) 10(A) , No pain 9:03:46 59 10 99 31.5 192/103(164) NSR 0 (11) 10(A) , No pain 9:05:06 60 6 99 32.2 177/97(120) NSR 0 (11) 10(A) , No pain Medications Time Medication Route Dose Verified Delivered Reason Note s Effectiveness by by 8:02:44 Oxygen etCO2 2 l/min Samson Pat used for Nasal [facility] procedure cannula MD NOBLE 8:03:03 0.9% NaCl I.V. 100 Samson Pat used for bolus ml/hr [facility] procedure MD NOBLE 8:04:20 Lidocaine 2% added 20ml Samson Samson used for to vial [facility] procedure field MD CARABALLO 8:05:48 Heparin Flush added 2 bags Samson Samson used for Bag to [facility] procedure (1000units/500ml field MD CARABALLO NS) 8:15:02 Radial Cocktail added 1 Samson Samson for (Verapamil to syringe [facility] vasodilation 2mg/Nitro field MD CARABALLO 400mcg/Hepari 8:15:29 Versed I.V. 1 mg Samson Pat for sedation [facility] MD, RN 8:15:38 Fentanyl I.V. 50 mcg Samson Pat for sedation [facility] MD, RN 8:18:08 Versed I.V. 1 mg Samson Pat for sedation [facility] MD, RN 8:18:20 Fentanyl I.V. 50 mcg Samson Pat for sedation [facility] MD, RN 8:36:12 Heparin Bolus I.V. 5000 Samson Pat for veri fied units [facility] anticoagulation per dr MD NOBLE ernesto 8:38:03 Integrilin I.V. 7.9 ml Samson Pat for wast ed (Bolus 2mg/ml) [facility] antiplatelet 2.1 ml MD NOBLE therapy 8:49:22 Vasotec IV 2.5 mg Samson Pat for [place] Sergio hypertension MD NOBLE 8:54:26 Plavix P.O. 600 mg Samson Pat for [place] Sergio anticoagulation MD NOBLE 8:56:47 Clonidine P.O. 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 7:51:11 Time tracking: Regular hours (M-F 7:00 - 5:00) 7:51:14 Plan of Care:Hemodynamics will remain stable., Cardiac rhythm will remain stable., Comfort level will be maintained., Respiratory function will remain adequate., Patient/ family verbilizes understanding of procedure., Procedure tolerated without complication., Recovers from procedure without complications.. 7:51:22 H&P Date Dictated: 09/18/2020 Within 30 days and on chart., H&P Addendum completed by physician on day of procedure. (MUST COMPLETE FOR ALL OUTPATIENTS). 7:51:30 Patient allergic to No known allergies 7:52:09 Stress Test: yes; abnormal APICAL 7:54:47 Mary Hill RN sent for patient. Start room use. 8:02:44 Oxygen 2 l/min etCO2 Nasal cannula was administered by Mary Hill RN; used for procedure; Verbal order read back and verified. 8:03:03 0.9% NaCl 100 ml/hr I.V. bolus was administered by Mary Hill RN; used for procedure; Verbal order read back and verified. 8:04:20 Lidocaine 2% 20ml vial added to field was administered by Samson Graham MD; used for procedure; Verbal order read back and verified. 8:05:48 Heparin Flush Bag (1000units/500ml NS) 2 bags added to field was administered by Samson Graham MD; used for procedure; Verbal order read back and verified. 8:09:15 Warm blankets applied, and eryn hugger turned on for patient comfort. 8:09:16 ECG and BP/O2 sat monitors applied to patient. 8:09:16 Correct patient and procedure confirmed by team. 8:09:20 Baseline sample Acquired. 8:09:24 Rhythm: sinus rhythm 8:09:31 Pre-procedure instructions explained to patient. 8:09:33 Family in patients room. 8:09:37 Is the patient allergic to Iodine/contrast media? No. 8:09:46 Was the patient premedicated? Yes 8:09:47 Is patient on blood thinner?No 8:09:52 Patient diabetic? No. 8:09:56 Snore? Yes 8:09:57 Sleep apnea? No 8:10:02 Dentures? Yes UPPER 8:10:08 Patient pain scale 0/10 ?. 8:10:15 IV patent on arrival in left forearm with 0.9% NaCl at [facility]. 8:12:19 Lab results completed and on chart. 8:12:28 Stress Test: yes; abnormal APICAL 8:12:32 Right Radial & Right Groin area was prepped with chlora-prep and draped in sterile fashion 8:12:33 Sharps counted by scrub and verified by R.N. 8:12:33 Alarms reviewed by R. N. 8:12:37 Physician arrived 8:12:38 Final Timeout: patient, procedure, and site verified with staff and physician. All members of the team are in agreement. 8:12:38 --------ALL STOP TIME OUT------ 8:12:40 Right Radial & Right Groin site verified by team. 8:12:44 Fire Safety Assessment: A--An alcohol-based skin anteseptic being used preoperatively., C--Open oxygen or nitrous oxide is being used., D--An ESU, laser, or fiber-optic light is being used. 8:12:57 Physical assessment completed. ASA score P 3 - A patient with severe systemic disease as per Samson Graham MD. 8:13:00 2) 60-89 Mildly reduced kidney function, and other findings (as for stage 1) point to kidney disease. 8:13:04 Maximum allowable contrast dose (3.7 X eGFR X 0.75)188 ml. 8:13:09 Sedation plan: IV Moderate Sedation Medication:Versed, Fentanyl 8:15:02 Radial Cocktail (Verapamil 2mg/Nitro 400mcg/Heparin 1500units) 1 syringe added to field was administered by Samson Graham MD; for vasodilation; Verbal order read back and verified. 8:15:29 Versed 1 mg I.V. was administered by Mary Hill RN; for sedation; Verbal order read back and verified. 8:15:38 Fentanyl 50 mcg I.V. was administered by Pat Hill RN; for sedation; Verbal order read back and verified. 8:17:51 Zero performed for pressure channel P1 8:18:08 Use device set Radial Dx or PCI 8:18:08 Versed 1 mg I.V. was administered by Mary Hill RN; for sedation; Verbal order read back and verified. 8:18:20 Fentanyl 50 mcg I.V. was administered by Mary Hill RN; for sedation; Verbal order read back and verified. 8:24:43 Procedure started. 8::43 Full Disclosure recording started 8:25:12 Local anesthetic to right radial artery with Lidocaine 2% by Samson Graham MD.INITIAL ACCESS ONLY 8:26:22 A 6 Fr Short sheath was inserted into the Right Radial artery 8:27:00 A DIAGNOSTIC Burdine 110cm 5 Fr catheter ([id number]) was advanced over the wire and used for Procedure. 8:27:29 unable to cannulate vessels through wrist 8:27:57 Local anesthetic to right femoral artery with Lidocaine 2% by Samson Graham MD.ADDITIONAL ACCESS 8:28:38 A 5 Fr sheath was inserted into the Right Femoral artery 8:28:42 J wire advanced. 8:29:44 DIAGNOSTIC Multipack 5Fr catheter set ([id number]) opened to sterile field. 8:30:15 A MULTIPACK JL 4.0 5Fr catheter was advanced over the wire and used for Procedure. 8:32:06 LCA angiography performed. 8:32:08 Catheter removed. 8:32:15 A MULTIPACK 3DRC 5Fr catheter was advanced over the wire and used for Procedure. 8:32:23 RCA angiography performed. 8:32:26 Catheter removed. 8:32:45 A MULTIPACK Pigtail 5 Fr catheter was advanced over the wire and used for Ventriculography. 8:33:07 LV angiography performed. 8:33:19 EF : 55 % 8:33:22 Catheter removed. 8:34:52 SHEATH 6FR [place] ([id number]) opened to sterile field. 8:34:53 INFLATOR Merit BasixCompak (GP4070) opened to sterile field. 8:34:54 Spearman OmniWire (56522) opened to sterile field. 8:34:54 GUIDE 6FR XBLAD 3.5 catheter ([id number]) opened to sterile field. 8:35:03 Sheath upsized to a 6 Fr Short. 8:35:09 Proceeding to intervention. 8:35:16 6 Fr xblad guide catheter was inserted over the wire 8:36:12 Heparin Bolus 5000 units I.V. was administered by Mary Hill RN; for anticoagulation; verified per dr orozco Verbal order read back and verified. 8:38:03 Integrilin (Bolus 2mg/ml) 7.9 ml I.V. was administered by Mary Hill RN; for antiplatelet therapy; wasted 2.1 ml Verbal order read back and verified. 8:40:26 Wire advanced across lesion. 8:42:05 pLAD lesion measured at .58 with IFR 8:44:14 Inflate balloon Inflation number: 1 A EUPHORA 3.0 x 15 Balloon ([id number]) was prepped and advanced across the Prox LAD 90, then inflated to 12 VANI for 0:20 (min:sec) . 8:44:49 Inflation number: 2 The EUPHORA 3.0 x 15 Balloon ([id number]) was reinflated across the Prox LAD , to 12 VANI for 0:31 (min:sec) . 8:45:53 Balloon removed over the wire. 8:48:06 Place stent Inflation Number: 1 A ANDER RX 3.5 x 26 stent ([id number]) was prepped and advanced across the Prox LAD1 90. The stent was deployed at 12 VANI for 0:33 (min:sec) . 8:49:00 Stent catheter was removed intact over wire. 8:49:22 Vasotec 2.5 mg IV was administered by Mary Hill RN; for hypertension; Verbal order read back and verified. 8:50:33 pLAD lesion measured at .90 with IFR 8:50:38 Wire removed. 8:50:46 Guide Catheter removed. 8:51:55 EXOSEAL 6Fr (EX600) opened to sterile field. 8:51:55 ZEPHYR REGULAR TR BAND (719559) opened to sterile field. 8:53:29 Procedure ended.(Physican Out) 8:54:05 Fluoroscopy time 07.30 minutes. 8:54:09 Fluoroscopy dose: 982 mGy 8:54:09 Flurop Dose total: 982 8:54:23 Dose Area Product 30639 mGy/cm. 8:54:26 Plavix 600 mg P.O. was administered by Mary Hill RN; for anticoagulation; Verbal order read back and verified. 8:54:29 Contrast amount:Isovue 300 92ml. 8:54:31 Maximum allowable dose exceeded? No. 8:54:32 Sharps counted by scrub and verified by R.N. 8:54:35 Sheldon band inflated with 10cc of air. 8:54:37 Insertion/operative site no bleeding no hematoma. 8:55:48 Post-op/insertion site Right Femoral artery dressed using a 4 x 4 and Tegaderm. 8:55:50 Post Procedure Pulses reassessed and unchanged 8:55:59 Post-procedure physical assessment completed. ASA score P 3 - A patient with severe systemic disease as per Samson Graham MD. 8:56:02 Post procedure rhythm: unchanged. 8:56:05 Estimated blood loss: 10 ml 8:56:07 Post procedure instruction explained to patient.Patient verbalizes understanding. 8:56:47 Clonidine 0.1 mg P.O. was administered by Mary Hill RN; for hypertension; Verbal order read back and verified. 8:57:19 Procedure type changed to Cath procedure, Diagnostic procedure, LHC, [facility] w/Coronaries, FFR/IVUS, FFR Initial, Sedation Charges, Moderate Sedation 25-39 minutes, PCI procedure, Coronary Stent, Hemochron ACT Test 8:57:21 Procedure and supply charges have been captured, reviewed, submitted and are correct. 9:02:25 Procedure Complication : No complications 9:02:32 ACT drawn and resulted at 326 seconds. (normal therapeutic range 180-240 seconds). 9:02:46 [facility] Findings: MVD- PCI performed (see procedure note) 9:02:47 Operative report dictated upon procedure completion. 9:02:48 See physician's report for complete and final results. 9:02:51 Report given to Pre/Post Procedure Room. 9:05:25 Patient transfered to Pre/Post Procedure Room with Stretcher. 9:06:33 Procedure ended. 9:06:33 Full Disclosure recording stopped 9:06:39 End room use (Document Last) 9:06:52 End room use (Document Last) 9:07:49 End room use (Document Last) Intervention Summary Intervention Notes Time ActionType Lesion and Equipment Used Action# Pressure Duration Attributes 8:44:14 Inflate Prox LAD EUPHORA 3.0 x 1 12 00:20 balloon 15 Balloon ([id number]) 8:44:49 Reinflate Prox LAD EUPHORA 3.0 x 2 12 00:31 balloon 15 Balloon ([id number]) 8:48:06 Place stent Prox LAD1 ANDER RX 3.5 x 1 12 00:33 26 stent ([id number]) Device Usage Item Name Manufacture Quantity Catalog [facility] Lot# / Number Charge Number Stock Stock Serial# Code DIAGNOSTIC Terumo 1 [id number] [id number] 5 Burdine 110cm 5 Fr catheter (923809) DIAGNOSTIC Cardinal 1 [id number] 090847 18565 994492 30 Multipack 5Fr Health catheter set ([id number]) MULTIPACK JL Cardinal 1 [id number] 5 4.0 5Fr Health catheter MULTIPACK 3DRC Cardinal 1 [id number] 5 5Fr catheter Health MULTIPACK Cardinal 1 326941 5 Pigtail 5 Fr Health catheter SHEATH 6FR Terumo 1 [id number] 927097 434255 [id number] 40 [place] ([id number]) INFLATOR Merit Merit 1 GU6330 420704 484060 450365 15 [facility] (JN1392) Spearman Spearman 1 [id number] 966618 08193 9963 5 OmniWire (21590) GUIDE 6FR Cardinal 1 [id number] 349691 405533 294712 10 XBLAD 3.5 Health catheter ([id number]) EUPHORA 3.0 x Medtronic 1 [id number] 496500 367984 927250 5 [id number] 15 Balloon ([id number]) ANDER RX 3.5 x Medtronic 1 [id number] 618649 4301725 239270 5 [id number] 26 stent ([id number]) EXOSEAL 6Fr Cardinal 1 EX600 255698 119074 724294 10 (EX600) Health ZEPHYR REGULAR Cardinal 1 284951 546466 9387604 814593 5 [facility] Fastly (302572) Signature Audit [place] Stage Time Signature Unsigned Intra-Procedure 10/13/2020 Mary Real 8:20:46 AM RT(R); Samson RT(R); Samson Spring MD 10/13/2020 8:23:13 AM Intra-Procedure 10/13/2020 Mary Real 9:06:52 AM RT(R) Intra-Procedure 10/13/2020 Mary Hill 9:07:49 AM RN Intra-Procedure 10/13/2020 Samson Gray 9:08:24 AM Saw CARABALLO Signatures Performing Physician : Signature : Samson Graham MD Date : Time : Monitor : Mary Mirandaur Signature : RT Date : Time : Monitor : Katie Saleh Signature : RT Date : Time : Nurse : [facility] Hill RN Signature : Date : Time : [facility] [address] [place] [address], [place] [address]
[2020-10-13 07:40] VITALS: BP 187/87; BMI 28.4
[2020-10-13 08:08] LABS: ANION GAP 13.5 mmol/L (8-16); CARBON DIOXIDE 26.4 mmol/L (21.0-32.0); CHOL - HDL RATIO 3.3 ratio (2.3-4.9); CREATININE - SERUM 1.1 mg/dL (0.6-1.3); LDL-HDL RATIO 1.9 ratio (1.5-3.5); POTASSIUM - SERUM 3.9 mmol/L (3.5-5.1)
[2020-10-13 08:10] LABS: BASOPHILS 0.4 % (0-2); EOSINOPHILS 1.3 % (0-7); HEMATOCRIT 45.9 % (42.0-54.0); HEMOGLOBIN 15.8 g/dL (13.5-17.5); IMMATURE GRANULOCYTES 0.4 % (0-5); LYMPHOCYTE ABS# 2.22 10x3/uL (1.32-3.57); LYMPHOCYTES 31.4 % (15-50); MCH 31.7 pg (26.0-34.0); MCHC 34.4 g/dL (31.0-37.0); MCV 92.2 fL (80.0-100.0); MEAN PLATELET VOLUME 10.3 fL (7.4-10.4); MONOCYTES 7.9 % (2-11); NEUTROPHIL ABS# 4.13 10x3/uL (1.78-5.38); NEUTROPHILS 58.6 % (40-80); PLATELET COUNT 248 10x3/uL (130-400); RBC 4.98 10x6/uL (4.20-6.10); RDW 13.7 % (11.5-14.5); WBC 7.1 10x3/uL (4.8-10.8)
[2020-10-13] MEDS ORDERED: PLAVIX75 MG PO (09:12)
--- NOTE | 2020-10-13 09:26 | NUR ---
PT ARRIVED BY STRETCHER. PLACED ON MONITORS. ASSESSMENT COMPLETED. VSS AT THIS TIME. FAMILY AT BEDSIDE. CALL LIGHT WITHIN REACH.
--- NOTE | 2020-10-13 09:45 | NUR ---
RIGHT GROIN FEMSTOP IN PLACE. PRESSURE AT 162mmHg. NO NEW HEMATOMA NOTED. RIGHT PEDAL PULSE WEAK, BUT PALPABLE. RIGHT WRIST Z BAND IN PLACE. NO BLEEDING/HEMATOMA NOTED. PT DIPHORETIC. ALERT AND ORIENTED. RETAKE BP IS 72/44. HR 47. PT PLACED ON TREND. IV FLUIDS OPENED. FEMSTOP PRESSURE DECREASED TO 125mmHg. NO BLEEDING/HEMATOMA NOTED. TATI CALLED TO COME FROM BACK TO SEE PT.
--- NOTE | 2020-10-13 09:50 | NUR ---
BP 97/50. HR 47. PT REPORTS HE FEELS BETTER. RIGHT GROIN WITH FEMSTOP IN PLACE. NO BLEEDING/HEMATOMA NOTED. WILL CONTINUE TO RECHECK BP AND FOLLOW TREND..
--- NOTE | 2020-10-13 10:03 | NUR ---
BP 110/58. HR 47. RIGHT GROIN FEMSTOP IN PLACE. NO BLEEDING/HEMATOMA NOTED. RIGHT PEDAL PULSE WEAK, BUT PALPABLE. CALL LIGHT WITHIN REACH. NO OTHER NEEDS AT THIS TIME.
--- NOTE | 2020-10-13 10:45 | NUR ---
PT C/O BACK PAIN 7/10 AT THIS TIME. RIGHT GROIN FEMSTOP IN PLACE. PRESSURE DECREASED TO 95mmHg. TOLERATING WELL. NO BLEEDING/HEMATOMA NOTED. RIGHT WRIST Z BAND IN PLACE. NO BLEEDING/HEMATOMA NOTED. WILL GIVE PAIN PILL PER MD ORDERS. ATTEMPTED TO REPOSITION PT FOR COMFORT.
--- NOTE | 2020-10-13 11:00 | NUR ---
FEMSTOP WEANED TO 70mmHg. STILL COMPLAINING OF PAIN. PT REPOSITIONED AGAIN FOR COMFORT. REPORTS THAT HIS BACK IS JUST UNCOMFORTABLE FROM LYING FLAT. VSS AT THIS TIME. RIGHT WRIST Z BAND IN PLACE. NO BLEEDING/HEMATOMA NOTED.
--- NOTE | 2020-10-13 11:15 | NUR ---
FEMSTOP WEANED TO 40mmHg. TOLERATING WELL. DENIES NAUSEA/PAIN. NO BLEEDING/HEMATOMA NOTED. RIGHT WRIST Z BAND IN PLACE. NO BLEEDING/HEMATOMA NOTED. CALL LIGHT WITHIN REACH. VSS AT THIS TIME. PT REPORTS PAIN IS 5/10. STILL PRESSURE/BURNING AT FEMSTOP SITE AND ACHING BACK. ASSURED HIM THAT ONCE FEMSTOP IS WEANED OFF HE WILL FEEL BETTER.
--- NOTE | 2020-10-13 11:30 | NUR ---
AIR REMOVED FROM FEMSTOP. TOLERATING WELL. HE REPORTS THAT BURNING FEELING FEELS MUCH BETTER. RIGHT PEDAL PULSE PALPABLE. RIGHT WRIST Z BAND IN PLACE. NO BLEEDING/HEMATOMA NOTED. CALL LIGHT WITHIN REACH. FAMILY AT BEDSIDE.
--- NOTE | 2020-10-13 12:00 | NUR ---
RIGHT GROIN C/D/I. NO BLEEDING/HEMATOMA NOTED. 2cc OF AIR REMOVED FROM Z BAND. NO BLEEDING/HEMATOMA NOTED. HEAD OF BED INC TO 30 DEGREES. TOLERATED WELL. SET UP WITH SANDWICH TRAY AND DRINK. DENIES NAUSEA/PAIN. FAMILY AT BEDSIDE TO ASSIST. CALL LIGHT WITHIN REACH.
--- NOTE | 2020-10-13 12:15 | NUR ---
RIGHT GROIN DRESSING APPLIED. NO BLEEDING/HEMATOMA NOTED. 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 GROIN SITE IS SOFT TO TOUCH. 3cc OF AIR REMOVED FROM Z BAND. NO BLEEDING/HEMATOMA NOTED.
--- NOTE | 2020-10-13 12:30 | NUR ---
3cc OF AIR REMOVED FROM Z BAND. NO BLEEDING/HEMATOMA NOTED. CALL LIGHT WITHIN REACH. VSS AT THIS TIME. RIGHT GROIN DRESSING C/D/I. NO S/S OF HEMATOMA NOTED. DENIES NAUSEA/PAIN.
--- NOTE | 2020-10-13 13:00 | NUR ---
RIGHT GROIN DRESSING C/D/I. NO S/S OF HEMATOMA NOTED. RIGHT WRIST Z BAND REMOVED AND DRESSING APPLIED. NO BLEEDING/HEMATOMA NOTED. RIGHT WRIST BRACE IN PLACE. PIV D/C'D WITH CATH TIP INTACT. TOLERATED WELL. PATIENT REPORTS THAT HE DOES NOT TOLERATE CHOLESTEROL MEDICATION. SO STATIN MEDICATION NOT CALLED IN PER PT REQUEST. PT TO GET UP AND DRESSED AT THIS TIME. AT BEDSIDE TO ASSIST. CALL LIGHT LEFT WITHIN REACH.
--- NOTE | 2020-10-13 13:20 | NUR ---
DISCUSSED DISCHARGE INSTRUCTIONS WITH PT AND PT'S FAMILY. THEY VOICED UNDERSTANDING. RIGHT WRIST AND RIGHT GROIN DRESSINGS C/D/I. NO S/S OF HEMATOMA NOTED. PT AMBULATED TO RESTROOM AND VOIDED WITHOUT DIFFICULTY. STEADY GAIT NOTED. PT'S CALLED THEIR RIDE TO COME AND PICK THEM UP.
--- NOTE | 2020-10-13 13:45 | NUR ---
PT TAKEN OUT TO VEHICLE BY WHEELCHAIR. NO S/S OF DISTRESS NOTED. ALL BELONGINGS AND PAPERWORK IN HAND. PT'S HAS HIS PLAVIX RX IN HAND. SHE WAS INSTRUCTED TO DROP OF RX AT PHARMACY TO GET FILLED AND PT TO START TAKING TOMORROW.
--- NOTE | 2020-10-15 08:06 | OP ---
PATIENT NAME: JAMSHID SANCHEZ MEDICAL RECORD: [id number] :40 LOCATION:D.CAT ADMISSION DATE: SURGEON: BAN CISNEROS MD DATE OF OPERATION: 10/13/2020 PROCEDURE: Left heart catheterization, selective coronary angiography, right femoral artery approach. CATHETERS: A 5-[place] Citizen sheath, 5/4 left and right Logan, 5/4 pig. The procedure was well tolerated. The patient was returned to the nolan. Sheath removed. ExoSeal device placed. CORONARY ANATOMY: Left main: Left main is free of disease. LAD: Has a 90 percent plus stenosis. This was confirmed with IFR wire of 0.54, preprocedure. Circumflex: Medium-sized circumflex, free of disease. Right coronary artery: Dominant artery, gives rise to PDA, has a long diffuse 80% stenosis, highly calcific. IMPRESSION AND PLAN: LAD today. Right coronary artery in a staged fashion including Diamondback debulking. DESCRIPTION: After 5-[place] Citizen sheath was exchanged for a 6-[place] Citizen sheath. IFR wire confirmed the significance of LAD. We predeployed with a 3.0 x 15 mm Euphora. Stent deployed was a 3.5 x 26 mm Onxy drug-eluting stent up to 14 atmospheres. Final angiography shows excellent resolution, 90% plus stenosis. No significant residual. IFR wire confirmed resolution of the lesion with IFR gradient of 0.9. Sheath closed with ExoSeal device. Plavix loaded in the lab. PLAN: Diamonback to the right coronary artery at a later date. TRANSINT:[id number] Voice Confirmation ID: [id number] DOCUMENT ID: [id number] BAN CISNEROS MD at 0806 CC: [id number] DICTATION DATE: 10/13/20 0901 STAMP CLERK: 10/13/20 1454 [facility] 10/13/20 [place] [id number] [place] [id number]
== END 2020-10-13 13:45 | disposition home or self-care (01) ==
LOC: D.CATH 06:53
PROVIDERS: ATTEND Internal Medicine Interventional Cardiology
DX: I20.9 Angina pectoris, unspecified (principal); I10 Essential (primary) hypertension; I48.91 Unspecified atrial fibrillation
CPT/HCPCS: 93458; 93571; C9600

== ENCOUNTER 2020-10-22 07:01 | Day surgery (SDC) | payer MEDICARE ==
[~2020-10-22] VITALS: Ht 172.7 cm; Wt 83.5 kg
--- NOTE | ~2020-10-22 | OP ---
PATIENT NAME: JAMSHID SANCHEZ MEDICAL RECORD: [id number] :40 LOCATION:D.CAT ADMISSION DATE: SURGEON: BAN CISNEROS MD DATE OF OPERATION: 10/22/2020 Procedure: OCCUPATIONAL HEALTH AND SAFETY ADVISER plus Diamondback rotational atherectomy plus stenting to the right coronary plus temporary wire placement. DESCRIPTION OF PROCEDURE: After the right femoral artery was cannulated as well as the right femoral vein. First the temporary pacemaker wire was placed into the RV apex without difficulty. After adequate thresholds were obtained, this was placed at a backup of 60. This was due to rotational arthrectomy of the right and risk of bradyarrhythmias. Next, we engaged with an AR2 guiding catheter and using the ViperWire we did multiple burrs down the right coronary. Up and down this vessel, there was marked calcium deposition. Next, deployment begins with 3.0 x 30 balloon. Stents placed were an 3.0 x 18 and 3.0 x 30. We attempted to place a 3.0 x 8, but we were unable to get this deployed up to 14 atmospheres for 45 seconds. Final angiography showed excellent resolution of a severely diffuse 89% stenosis with debulking with rotational atherectomy and stenting. MANDI flow was 3 throughout the procedure. Nice pump in the distal vasculature with still some small residual at the mid portion of the vessel, no more than 10%. A temporary wire was removed. Sheath was closed with ExoSeal device. The patient was previously on Plavix. TRANSINT:[id number] Voice Confirmation ID: [id number] DOCUMENT ID: [id number] BAN CISNEROS MD CC: [id number] DICTATION DATE: 10/22/20 1042 GEOGRAPHIC INFORMATION SYSTEMS DIRECTOR: 10/22/20 1713 [facility] 10/22/20 [facility] [address] [place] [address]
--- NOTE | ~2020-10-22 | HEMODYNAMI ---
PATIENT:JAMSHID SANCHEZ MEDICAL RECORD: [id number] : 40 LOCATION:[facility] ADMISSION DATE: 10/22/20 Generatedon:110:46 Patient name: JAMSHID SANCHEZ Patient #: [id number] SSN: [id number] : 1940 Date of study: 10/22/2020 Page: Of Hemodynamic Procedure Report Patient Data Patient Demographics Procedure consent was obtained First Name: JAMSHID Gender: Male Last Name: LAURA : 1940 Middle Initial: R Age: 80 year(s) Patient #: [id number] Race: SSN: [id number] Additional ID: [id number] Contact details Address: [address] [place] [address] [place] cutoff State: [place] City: [place] Zip code: [address] Past Medical History Allergies: No known allergies Admission Admission Data Admission Date: 10/22/2020 Admission Time: 7:01 Arrival Date: 10/22/2020 Arrival Time: 0:00 Admit Source: Other Insurance Payor: Medicare [facility] #: [id number] Height (in.): 67.72 BSA: 1.96 (m2) Height (cm.): 172 BMI: 28.06 (kg/m2) Weight (lbs.): 182.98 Weight (kg.): 83 Lab Results Lab Result Date: 10/22/2020 Lab Result Time: 0:00 Biochemistry Name Units Result Min Max BUN mg/dl 14 --(--*-)-- 7 18 Creatinine mg/dl 1.1 --(--*-)-- 0.6 1.3 eGFR ml/min 67.40565 *-(----)-- 90 120 NONAFRICAN CBC Name Units Result Min Max Hemoglobin g/dl 15.6 --(--*-)-- 13.5 17.5 Procedure Procedure Types Cath Procedure Diagnostic Procedure Temporary Pacemaker Sedation Charges Moderate Sedation 55-69 minutes PCI Procedure Hemochron ACT Test Coronary Atherectomy Atherectomy w/Stent Coronary Initial Procedure Description Procedure Date Procedure Date: 10/22/2020 Procedure Start Time: 8:59 Procedure End Time: 10:44 Procedure Staff Name Function Samson Graham MD Performing Physician Mary Real RT Monitor Maegan Ramirez RN Nurse Joe Mukherjee RN Nurse Ashlyn Lawson RT Scrub Procedure Data Cath Procedure Fluoroscopy Diagnostic fluoroscopy Total fluoroscopy Time: 35 time: 35 min min Diagnostic fluoroscopy Total fluoroscopy dose: dose: 1498 mGy 1498 mGy Contrast Material Contrast Material Type Amount (ml) Isovue 300 106 Entry Location Entry Primary Successful Side Size Upsize Upsize Entry Closure Pace ccessful Closure Location (Fr) 1 (Fr) 2 (Fr) Remarks Device Remarks Femoral Right 7 Fr Exoseal artery Short Femoral Right 6 Fr Manual vein Short Compression Diagnostic catheters Device Type Used For End Catheter Placement SWAN 7Fr Thermodilution Procedure cather (131F7P) Procedure Complications No complications Procedure Medications Medication Administration Route Dosage Oxygen etCO2 Nasal cannula 2 l/min Lidocaine 2% added to field 20 Heparin Flush Bag added to field 2 bags (1000units/500ml NS) 0.9% NaCl I.V. 100 ml/hr Versed I.V. 1 mg Fentanyl I.V. 50 mcg Versed I.V. 1 mg Fentanyl I.V. 50 mcg Versed I.V. 1 mg Fentanyl I.V. 50 mcg Fentanyl I.V. 50 mcg Versed I.V. 1 mg Heparin Bolus I.V. 5000 units Heparin Bolus I.V. 3000 units Fentanyl I.V. 50 mcg Fentanyl I.V. 50 mcg Atropine I.V. 0.5 mg Versed I.V. 1 mg Integrilin (Bolus I.V. 7.3 ml 2mg/ml) Nitroglycerin IC/IA I.C. 150 mcg Heparin Bolus I.V. 2000 units Versed I.V. 1 mg Zofran 4 mg Heparin Bolus I.V. 2000 units Plavix P.O. 75 mg 0.9% NaCl I.V. 100 ml/hr Hemodynamics Rest BSA: 1.96 (m2) HGB: 15.6 (g/dl) O2 Consumption: Estimated: 212.06 (ml/min) O2 Co nsumption indexed: Estimated:108.19 (ml/min/m) Heart Rate: 54 (bpm) Snapshots Pre Cath Intra NCS Post Cath Vital Signs Time Heart Resp SPO2 etCO2 NIBP (mmHg) Rhythm Pain Sedation Rate (ipm) (%) (mmHg) Status Level (bpm) 8:45:33 51 13 100 29.3 169/78(141) SB 0 (11) 10(A) , No pain 8:50:44 52 10 100 36.2 176/77(111) SB 0 (11) 10(A) , No pain 8:55:10 54 10 100 0 148/72(87) SB 0 (11) 9(A) , No pain 8:59:33 53 13 100 36.2 166/81(133) SB 0 (11) 9(A) , No pain 9:03:59 55 12 100 0 164/86(138) SB 0 (11) 9(A) , No pain 9:08:17 75 11 100 37.7 158/89(115) Paced 0 (11) 9(A) , No pain 9:13:26 53 10 92 33.1 162/99(157) SB 0 (11) 9(A) , No pain 9:17:38 69 12 99 21.1 138/84(109) Paced 0 (11) 9(A) , No pain 9:23:02 65 10 99 36.9 147/74(100) Paced 0 (11) 9(A) , No pain 9:28:29 73 10 100 33.1 145/81(129) Paced 0 (11) 9(A) , No pain 9:33:53 73 14 100 26.3 176/87(144) Paced 0 (11) 9(A) , No pain 9:38:15 63 12 99 30.1 167/95(119) Paced 0 (11) 9(A) , No pain 9:42:37 61 10 98 32.4 146/102(139) Paced 0 (11) 9(A) , No pain 9:47:59 80 12 98 34.6 187/118(161) Paced 0 (11) 9(A) , No pain 9:52:31 88 13 97 25.6 179/124(148) Paced 0 (11) 9(A) , No pain 9:56:45 89 11 95 0 153/101(134) Paced 0 (11) 9(A) , No pain 10:00:55 92 13 95 23.3 142/101(119) Paced 0 (11) 9(A) , No pain 10:06:07 90 10 95 30.9 171/112(144) Paced 0 (11) 9(A) , No pain 10:11:35 90 12 95 0 147/104(142) Paced 0 (11) 9(A) , No pain 10:15:52 90 12 96 0 166/105(146) Paced 0 (11) 9(A) , No pain 10:21:14 87 11 96 0.7 158/106(140) Paced 0 (11) 9(A) , No pain 10:25:36 88 11 95 27.1 160/109(133) Paced 0 (11) 9(A) , No pain 10:29:58 86 11 96 31.6 176/115(164) Paced 0 (11) 9(A) , No pain 10:34:18 91 10 99 21.8 162/116(151) Paced 0 (11) 10(A) , No pain 10:39:18 92 14 98 27.1 Measuring Paced 0 (11) 9(A) , No pain 10:39:30 91 13 98 30.2 133/98(116) Paced 0 (11) 9(A) , No pain 10:43:42 89 6 99 24.1 129/99(119) Paced 0 (11) 9(A) , No pain Medications Time Medication Route Dose Verified Delivered Reason Notes Effectiveness by by 8:43:44 Oxygen etCO2 2 Samson Issa used for Nasal l/min St Saw Ramirez RN procedure cannula 8:43:50 Lidocaine 2% added 20ml Samson Davies for local to vial [facility] anesthetic field MD CARABALLO 8:43:56 Heparin Flush added 2 Samson Samson used for Bag to bags [facility] procedure (1000units/500ml field MD CARABALLO NS) 8:44:05 0.9% NaCl I.V. 100 Samson Watersie Per physician ml/hr St Saw Ramirez RN, MD 8:54:49 Versed I.V. 1 mg Samson Watersie for sedation St Saw Ramirez RN, MD 8:54:54 Fentanyl I.V. 50 Samson Watersie for sedation mcg St Saw Ramirez RN, MD 8:57:59 Versed I.V. 1 mg Samson Buffie for sedation St Saw Ramirez RN, MD 8:58:04 Fentanyl I.V. 50 Samson Buffie for sedation mcg St Saw Ramirez RN, MD 9:03:01 Versed I.V. 1 mg Samson Buffie for sedation St Saw Ramirez RN, MD 9:03:05 Fentanyl I.V. 50 Samson Buffie for sedation mcg St Saw Ramirez RN, MD 9:07:32 Fentanyl I.V. 50 Samson Buffie for sedation mcg St Saw Ramirez RN, MD 9:07:36 Versed I.V. 1 mg Samson Buffie for sedation St Saw Ramirez RN, MD 9:12:15 Heparin Bolus I.V. 5000 Samson Buffie for units St Saw Ramirez RN anticoagulation 9:32:02 Heparin Bolus I.V. 3000 Samson Buffie for units St Saw Ramirez RN anticoagulation 9:33:53 Fentanyl I.V. 50 Samson Buffie for sedation mcg St Saw Ramirez RN, MD 9:36:07 Fentanyl I.V. 50 Samson Buffie for sedation mcg St Saw Ramirez RN, MD 9:36:09 Versed I.V. 1 mg Samson Buffie for sedation St Saw Ramirez RN, MD 9:43:41 Atropine I.V. 0.5 Samson Buffie For bradycardia mg St Saw Ramirez RN, MD 9:48:05 Integrilin I.V. 7.3 Samson Buffie for 2.7 m l (Bolus 2mg/ml) ml St Saw Ramirez RN antiplatelet wasted MD therapy 9:54:52 Nitroglycerin I.C. 150 Samson Buffie for IC/IA mcg St Saw Ramirez RN vasodilation 9:55:07 Heparin Bolus I.V. 2000 Samson Buffie for units St Saw Ramirez RN anticoagulation 9:55:14 Versed I.V. 1 mg Samson Buffie for sedation St Saw Ramirez RN, MD 9:57:26 Zofran 4 mg Samson Buffie for nausea St Saw Ramirez RN, MD 10:27:32 Heparin Bolus I.V. 2000 Samson Buffie for units St Saw Ramirez RN anticoagulation 10:27:40 Plavix P.O. 75 mg Samson Buffie for St Saw Ramirez RN antiplatelet MD therapy 10:35:12 0.9% NaCl I.V. 100 Samson Buffie Per physician ml/hr St Saw Ramirez RN, MD Procedure Log Time Note 8:14:46 Admit Source: Other 8:14:49 Arrival Date: 10/22/2020 12:00:00 AM 8:24:32 Patient Height : 67.72 inches 8:24:35 Patient Weight : 182.98 lbs 8:24:44 Insurance Payor : Medicare 8:25:14 Lab Result : BUN 14 mg/dl 8:25:14 Lab Result : eGFR NONAFRICAN 67.13086 ml/min 8:25:14 Lab Result : Hemoglobin 15.6 g/dl 8:25:14 Lab Result : Creatinine 1.1 mg/dl 8:25:40 Procedure type changed to Cath procedure, Diagnostic procedure, Temporary Pacemaker, Sedation Charges, Moderate Sedation 55-69 minutes, PCI procedure, Hemochron ACT Test, Coronary Atherectomy, Atherectomy w/Stent Coronary Initial 8:35:28 Procedure Status Elective Heart Cath (OP). 8:35:31 Maegan Ramirez RN sent for patient. Start room use. 8:35:57 Time tracking: Regular hours (M-F 7:00 - 5:00) 8:36:03 Plan of Care:Hemodynamics will remain stable., Cardiac rhythm will remain stable., Comfort level will be maintained., Respiratory function will remain adequate., Patient/ family verbilizes understanding of procedure., Procedure tolerated without complication., Recovers from procedure without complications.. 8:43:34 Vital chart was started 8:43:44 Oxygen 2 l/min etCO2 Nasal cannula was administered by Maegan Ramirez RN; used for procedure; Verbal order read back and verified. 8:43:50 Lidocaine 2% 20ml vial added to field was administered by Samson Graham MD; for local anesthetic; Verbal order read back and verified. 8:43:56 Heparin Flush Bag (1000units/500ml NS) 2 bags added to field was administered by Samson Graham MD; used for procedure; Verbal order read back and verified. 8:44:05 0.9% NaCl 100 ml/hr I.V. was administered by Maegan Ramirez RN; Per physician; Verbal order read back and verified. 8:51:21 H&P Date Dictated: 10/22/2020 Within 30 days and on chart., H&P Addendum completed by physician on day of procedure. (MUST COMPLETE FOR ALL OUTPATIENTS). 8:51:23 Pre-procedure instructions explained to patient. 8:51:30 Patient arrived from Pre/Post Procedure Room to CCL 1. Patient remains on bed/stretcher for procedure. 8:51:34 Signed procedure consent form obtained from patient. 8:51:35 Warm blankets applied, and eryn hugger turned on for patient comfort. 8:51:35 Correct patient and procedure confirmed by team. 8:51:36 ECG and BP/O2 sat monitors applied to patient. 8:51:37 Baseline sample Acquired. 8:51:42 Rhythm: sinus rhythm 8:51:44 Full Disclosure recording started 8:51:51 Family in waiting room. 8:51:55 Patient NPO since Midnight. 8:52:10 Patient allergic to No known allergies 8:52:13 Is the patient allergic to Iodine/contrast media? No. 8:52:16 Was the patient premedicated? Yes 8:52:18 Is patient on blood thinner?Yes 8:52:25 ACC The patient was administered the following blood thiners within the last 24 hours: ACCPlavix, Eliquis 8:52:42 Patient diabetic? No. 8:52:49 Snore? No 8:52:50 Sleep apnea? No 8:52:57 Dentures? Yes secure 8:53:09 IV patent on arrival in left forearm with 0.9% NaCl at [facility]. 8:53:14 Lab results completed and on chart. 8:53:20 Bilateral groins area was prepped with chlora-prep and draped in sterile fashion 8:53:22 Alarms reviewed by R. N. 8:53:23 Sharps counted by scrub and verified by R.N. 8:53:24 Physician arrived 8:53:25 --------ALL STOP TIME OUT------ 8:53:38 Final Timeout: patient, procedure, and site verified with staff and physician. All members of the team are in agreement. 8:53:41 Bilateral groins site verified by team. 8:53:47 Fire Safety Assessment: A--An alcohol-based skin anteseptic being used preoperatively., C--Open oxygen or nitrous oxide is being used., D--An ESU, laser, or fiber-optic light is being used. 8:53:52 Physical assessment completed. ASA score P 3 - A patient with severe systemic disease as per Samson Gladys MD. 8:53:55 2) 60-89 Mildly reduced kidney function, and other findings (as for stage 1) point to kidney disease. 8:53:59 Maximum allowable contrast dose (3.7 X eGFR X 0.75)188 ml. 8:54:04 Sedation plan: IV Moderate Sedation Medication:Versed, Fentanyl 8:54:09 Use device set Femoral Dx 8:54:49 Versed 1 mg I.V. was administered by Maegan Ramirez RN; for sedation; Verbal order read back and verified. 8:54:54 Fentanyl 50 mcg I.V. was administered by Maegan Ramirez RN; for sedation; Verbal order read back and verified. 8:56:53 Zero performed for pressure channel P1 8:57:59 Versed 1 mg I.V. was administered by Maegan Ramirez RN; for sedation; Verbal order read back and verified. 8:58:04 Fentanyl 50 mcg I.V. was administered by Maegan Ramirez RN; for sedation; Verbal order read back and verified. 8:59:29 Procedure started. 8:59:35 Local anesthetic to right femoral artery with Lidocaine 2% by Samson Graham MD.INITIAL ACCESS ONLY 8:59:49 ACIST Syringe (45790) opened to sterile field. 8:59:50 Bag Decanter (2002) opened to sterile field. 8:59:51 Medline Cath Pack ([id number]) opened to sterile field. 8:59:53 ACIST Hand Control (22712) opened to sterile field. 8:59:53 ACIST Manifold (17955) opened to sterile field. 8:59:56 Tegaderm 4 x 4 (1626W) opened to sterile field. 9:00:03 EMERALD Guide Wire (502-763) opened to sterile field. 9:00:14 SHEATH 6FR Minto (STA382) opened to sterile field. 9:00:15 SHEATH 7FR Minto (OMV527) opened to sterile field. 9:00:52 INFLATOR Merit BasixCompak (YA1576) opened to sterile field. 9:00:52 GUIDE 7FR AR 1.0 catheter ([id number]) opened to sterile field. 9:02:38 A 7 Fr Short sheath was inserted into the Right Femoral artery 9:03:01 Versed 1 mg I.V. was administered by Maegan Ramirez RN; for sedation; Verbal order read back and verified. 9:03:05 Fentanyl 50 mcg I.V. was administered by Maegan Ramirez RN; for sedation; Verbal order read back and verified. 9:04:12 A 6 Fr Short sheath was inserted into the Right Femoral vein 9:05:12 A SWAN 7Fr Thermodilution cather (131F7P) was advanced over the wire and used for Procedure. 9:05:24 Temporary pacer inserted 9:06:19 Temporary pacer turned on with the following settings: Rate 70, MA 5, Mode: Demand. 9:07:21 7 Fr AR1 guide catheter was inserted over the wire 9:07:32 Fentanyl 50 mcg I.V. was administered by Maegan Ramirez RN; for sedation; Verbal order read back and verified. 9:07:36 Versed 1 mg I.V. was administered by Maegan Ramirez RN; for sedation; Verbal order read back and verified. 9:08:52 Guide catheter removed. 9::12 Guide Catheter removed. pressure damping. 9:09:30 GUIDE 7FR AR 1.0 SH catheter ([id number]) opened to sterile field. 9:09:43 7 Fr AR1SH guide catheter was inserted over the wire 9:10:19 Quick Combo opened to sterile field. 9:10:33 Quick combo pads placed on patients chest and back. 9:12:15 Heparin Bolus 5000 units I.V. was administered by Maegan Ramirez RN; for anticoagulation; Verbal order read back and verified. 9:12:28 Teleport opened to steril field. 9:12:39 Teleport Microcatheter 2.6i290sa ([id number]) opened to sterile field. 9:17:56 teleport used for wire exchange 9:18:04 BMW 300cm [place] 2 J wire ([id number]) opened to sterile field. 9:18:26 BMW exchanged for Viperwire 9:18:37 DIAMONDBACK Viperwire Advance Coronary guidewire ([id number]) opened to sterile field. 9:22:24 DIAMONDBACK Coronary atherectomy catheter (YVPN942) opened to sterile field. 9:22:52 Temporary pacer turned on with the following settings: Rate ?, MA 6, Mode: Demand. 9:27:25 Diamondback atherectomy performed on RCA 9:32:02 Heparin Bolus 3000 units I.V. was administered by Maegan Ramirez RN; for anticoagulation; Verbal order read back and verified. 9:33:53 Fentanyl 50 mcg I.V. was administered by Maegan Ramirez RN; for sedation; Verbal order read back and verified. 9:36:07 Fentanyl 50 mcg I.V. was administered by Maegan Ramirez RN; for sedation; Verbal order read back and verified. 9:36:09 Versed 1 mg I.V. was administered by Maegan Ramirez RN; for sedation; Verbal order read back and verified. 9:37:07 Temporary pacer turned on with the following settings: Rate 60, MA 5, Sensitivity demand mode. 9:43:41 Atropine 0.5 mg I.V. was administered by Maegan Ramirez RN; For bradycardia; Verbal order read back and verified. 9:48:05 Integrilin (Bolus 2mg/ml) 7.3 ml I.V. was administered by Maegan Ramirez RN; for antiplatelet therapy; 2.7 ml wasted Verbal order read back and verified. 9:52:10 Balloon removed over the wire. 9:53:05 Inflate balloon Inflation number: 1 A EUPHORA 3.0 x 30 Balloon ([id number]) was prepped and advanced across the Mid RCA , then inflated to 0 VANI for 0:35 (min:sec) . 9:54:28 Inflation number: 2 The EUPHORA 3.0 x 30 Balloon ([id number]) was reinflated across the Mid RCA , to 0 VAIN for 0:33 (min:sec) . 9:54:52 Nitroglycerin IC/IA 150 mcg I.C. was administered by Maegan Ramirez RN; for vasodilation; Verbal order read back and verified. 9:55:07 Heparin Bolus 2000 units I.V. was administered by Maegan Ramirez RN; for anticoagulation; Verbal order read back and verified. 9:55:14 Versed 1 mg I.V. was administered by Maegan Ramirez RN; for sedation; Verbal order read back and verified. 9:57:17 Balloon removed over the wire. 9:57:26 Zofran 4 mg was administered by Maegan Ramirez RN; for nausea; Verbal order read back and verified. 10:00:31 stent removed unable to cross. wire exchanged for choice PT EX 10:00:54 CHOICE PT Extra Support J 300cm guide wire ([id number]) opened to sterile field. 10:06:55 Inflate balloon Inflation number: 1 A EUPHORA 3.0 x 20 Balloon ([id number]) was prepped and advanced across the Mid RCA1 , then inflated to 0 VANI for 0:26 (min:sec) . 10:07:09 Inflation number: 2 The EUPHORA 3.0 x 20 Balloon ([id number]) was reinflated across the Mid RCA1 , to 0 VANI for 0:10 (min:sec) . 10:07:27 Inflation number: 3 The EUPHORA 3.0 x 20 Balloon ([id number]) was reinflated across the Mid RCA1 , to 0 VANI for 0:16 (min:sec) . 10:08:07 Balloon removed over the wire. 10:10:05 Place stent Inflation Number: 1 A ANDER RX 3.5 x 18 stent ([id number]) was prepped and advanced across the Dist RCA . The stent was deployed at 14 VANI for 0:32 (min:sec) . 10:10:19 Stent catheter was removed intact over wire. 10:15:05 Place stent Inflation Number: 4 A ANDER RX 3.5 x 38 stent ([id number]) was prepped and advanced across the Mid RCA . The stent was deployed at 14 VANI for 0:20 (min:sec) . 10:16:16 Stent catheter was removed intact over wire. 10:19:39 The ANDER RX 3.5 x 08 stent ([id number]) was advanced then removed because of failure to cross lesion 10:22:27 Inflate balloon Inflation number: 4 A NC EUPHORA 3.5 x 12 balloon ([id number]) was prepped and advanced across the Mid RCA1 , then inflated to 12 VANI for 0:16 (min:sec) . 10:25:51 WHISPER 300cm guide wire ([id number]) opened to sterile field. 10:26:27 Whisper used to dre the stent 10:27:32 Heparin Bolus 2000 units I.V. was administered by Maegan Ramirez RN; for anticoagulation; Verbal order read back and verified. 10:27:40 Plavix 75 mg P.O. was administered by Maegan Ramirez RN; for antiplatelet therapy; Verbal order read back and verified. 10:31:30 The ANDER RX 3.5 x 08 stent ([id number]) was advanced then removed because 10:31:51 unable to cross. 10:32:52 Wire removed. 10:32:53 Guide catheter removed. 10:33:09 EXOSEAL 7Fr (EX700) opened to sterile field. 10:33:23 Sheath removed intact; hemostasis achieved with Exoseal to the Right Femoral artery. 10:33:32 Procedure ended.(Physican Out) 10:33:50 Fluoroscopy time 35.00 minutes. 10:33:55 Flurop Dose total: 1498 10:33:55 Fluoroscopy dose: 1498 mGy 10:34:01 Dose Area Product 29571 mGy/cm. 10:35:12 0.9% NaCl 100 ml/hr I.V. was administered by Maegan Ramirez RN; Per physician; Verbal order read back and verified. 10:35:50 Contrast amount:Isovue 300 106ml. 10:35:54 Maximum allowable dose exceeded? No. 10:37:13 ACT drawn and resulted at 346 seconds. (normal therapeutic range 180-240 seconds). 10:37:18 Insertion/operative site no bleeding no hematoma. 10:37:21 Post-op/insertion site Right Femoral artery dressed using a 4 x 4 and Tegaderm. 10:38:10 Sheath removed intact; hemostasis achieved with Manual Compression to the Right Femoral vein. 10:42:44 Procedure and supply charges have been captured, reviewed, submitted and are correct. 10:44:08 Procedure Complication : No complications 10:44:10 Vital chart was stopped 10:44:16 [facility] Findings: MVD- PCI performed (see procedure note) 10:44:22 See physician's report for complete and final results. 10:44:23 Report given to Pre/Post Procedure Room. 10:44:35 Patient transfered to Pre/Post Procedure Room with Stretcher. 10:44:38 Procedure ended. 10:44:38 Full Disclosure recording stopped 10:44:42 End room use (Document Last) 10:45:03 End room use (Document Last) Intervention Summary Intervention Notes Time ActionType Lesion and Equipment Used Action# Pressure Duration Attributes 9:53:05 Inflate Mid RCA EUPHORA 3.0 x 1 0 00:35 balloon 30 Balloon ([id number]) 9:54:28 Reinflate Mid RCA EUPHORA 3.0 x 2 0 00:33 balloon 30 Balloon ([id number]) 10:06:55 Inflate Mid RCA1 EUPHORA 3.0 x 1 0 00:26 balloon 20 Balloon ([id number]) 10:07:09 Reinflate Mid RCA1 EUPHORA 3.0 x 2 0 00:11 balloon 20 Balloon ([id number]) 10:07:27 Reinflate Mid RCA1 EUPHORA 3.0 x 3 0 00:16 balloon 20 Balloon ([id number]) 10:10:05 Place stent Dist RCA ANDER RX 3.5 x 1 14 00:32 18 stent ([id number]) 10:15:05 Place stent Mid RCA ANDER RX 3.5 x 4 14 00:20 38 stent ([id number]) 10:19:39 Discard ANDER RX 3.5 x Stent 08 stent ([id number]) 10:22:27 Inflate Mid RCA1 NC EUPHORA 3.5 4 12 00:16 balloon x 12 balloon ([id number]) 10:31:30 Discard ANDER RX 3.5 x Stent 08 stent ([id number]) Device Usage Item Name Manufacture Quantity Catalog Number Hospital Part Current Minimal Lot# / Charge Number Stock Stock Serial# Code ACIST Syringe Acist Medical 1 51880 922002 560735 958739 20 (33618) Systems Inc Bag Decanter Microtek 1 2001S 447273 18344 473392 5 (2001S) Medical Inc. Medline Cath Medline 1 [id number] 188151 92177 386150 5 Pack ([id number]) ACIST Hand Acist Medical 1 33704 170021 703950 312227 5 Control Systems Inc (52528) ACIST Manifold Acist Medical 1 56040 088629 189460 115450 5 (41473) Systems Inc Tegaderm 4 x 4 3M 1 1626W 303715 008315 341772 5 (1626W) EMERALD Guide Cardinal 1 502-455 559112 195292 239451 5 Wire (934-895) Health SHEATH 6FR Terumo 1 UOA359 326576 821630 461330 40 Minto (TVV791) SHEATH 7FR Terumo 1 CZW053 061635 692391 884363 5 Minto (FUM601) INFLATOR [facility] 1 EX4733 894938 606500 426288 15 BasixCompak (BK7214) GUIDE 7FR AR Medtronic 1 [id number] 960128 554601 502569 0 1.0 catheter (DE3FO44) SWAN 7Fr Louie 1 131F7P 500152 56796 956254 3 Thermodilution Lifesciences cather (131F7P) GUIDE 7FR AR Medtronic 1 [id number] 193432 633895 595755 0 1.0 SH catheter ([id number]) Librato 1 80488-106243 193892 753692 086744 5 Teleport Cardiovascular 1 109-28-6846A 149050 6494480 744614 0 Microcatheter systems 2.5t389rz (431-39-1607Q) BMW 300cm Baca 1 [id number] 908347 980886 215282 5 [place] 2 J Vascular wire (3524360S) DIAMONDBACK Cardiovascular 1 [id number] 756465 152477 014818 5 Viperwire systems Advance Coronary guidewire ([id number]) DIAMONDBACK Cardiovascular 1 DBEC-125 198789 061327 942209 5 Coronary systems atherectomy catheter (VSDB698) EUPHORA 3.0 x Medtronic 1 [id number] 736119 021671 288320 5 [id number] 30 Balloon ([id number]) CHOICE PT Clear 1 [id number] 72332620181219 210473 5 Extra Support Scientific J 300cm guide wire (5891976S8) EUPHORA 3.0 x Medtronic 1 [id number] 160799 947850 505871 5 [id number] 20 Balloon ([id number]) ANDER RX 3.5 x Medtronic 1 [id number] 882499 4148850 458963 5 [id number] 18 stent ([id number]) ANDER RX 3.5 x Medtronic 1 [id number] 838452 5096613 897803 5 [id number] 38 stent ([id number]) ANDER RX 3.5 x Medtronic 1 [id number] 994820 1254730 654124 5 [id number] 08 stent ([id number]) NC EUPHORA 3.5 Medtronic 1 [id number] 130329 607043 909659 1 [id number] x 12 balloon ([id number]) WHISPER 300cm Baca 1 [id number] 354360 623967 091401 5 guide wire Vascular ([id number]) EXOSEAL 7Fr Cardinal 1 EX700 071213 137872 882149 5 (EX700) Health Signature Audit Breaks Stage Time Signature Unsigned Intra-Procedure 10/22/2020 Mary Real 10:45:04 AM RT(R) Intra-Procedure 10/22/2020 Maegan Ramirez RN 10:45:55 AM Intra-Procedure 10/22/2020 Samson Graham MD 10:46:40 AM [place] [address] [place] [address]
[~2020-10-22 07:01] MED LIST changes: +PLAVIX75 MG PO
[2020-10-22 07:45] VITALS: BP 170/79; Ht 172.7 cm; Wt 83.5 kg
[2020-10-22 07:45] LABS: BASOPHILS 0.3 % (0-2); EOSINOPHILS 1.1 % (0-7); HEMATOCRIT 44.6 % (42.0-54.0); HEMOGLOBIN 15.6 g/dL (13.5-17.5); IMMATURE GRANULOCYTES 0.4 % (0-5); LYMPHOCYTE ABS# 1.69 10x3/uL (1.32-3.57); LYMPHOCYTES 23.4 % (15-50); MCV 91.4 fL (80.0-100.0); MEAN PLATELET VOLUME 9.3 fL (7.4-10.4); MONOCYTES 8.6 % (2-11); NEUTROPHIL ABS# 4.78 10x3/uL (1.78-5.38); NEUTROPHILS 66.2 % (40-80); PLATELET COUNT 252 10x3/uL (130-400); RBC 4.88 10x6/uL (4.20-6.10); RDW 13.4 % (11.5-14.5); WBC 7.2 10x3/uL (4.8-10.8)
[2020-10-22 07:50] LABS: ANION GAP 15.2 mmol/L (8-16); CALCIUM 9.5 mg/dL (8.5-10.1); CARBON DIOXIDE 25.7 mmol/L (21.0-32.0); CREATININE - SERUM 1.1 mg/dL (0.6-1.3); POTASSIUM - SERUM 3.9 mmol/L (3.5-5.1)
--- NOTE | 2020-10-22 10:57 | NUR ---
ARRIVES TO ROOM 6 VIA STRETCHER FROM [facility] CATH. SEE BUSINESS JOB TITLES. PT WITH FEMSTOP IN PLACE TO RIGHT GROIN @ 152mmHG , NO OOZING OR BLEEDING NOTED AREA SOFT, POST TIB PULSE DOPPLERED, PT HAS SENSATION IN EXTREMITY, PT DENIES PAIN. RELEASE FEMSTOP DOWN TO 121mmHG WITH NO CHANGE IN ABOUE ASSESMENT PT TOLERATING WELL. CALL LIGHT WITH IN REACH SPOUSE A BEDSIDE , DR DANG AT BEDSIDE EARLIER TO SPEAK WITH SPOUSE
--- NOTE | 2020-10-22 11:15 | NUR ---
PT RESTING QUIETLY, VSS, SR, SATS 100% 2LNC , RIGHT GROIN WITH FEMSTOP IN PLACE AT 121 mmHG NO OOZING OR BLEEDING AREA SOFT, EXTREMITY COOL AND POST TIB PULSE DOPPLERED. DENIES PAIN OR NEEDS, IV INFUSING PER ORDERS, CALL LIGHT WITHIN REACH.
--- NOTE | 2020-10-22 11:30 | NUR ---
RIGHT GROIN WITH FEMSTOP @ [address] NO OOZING OR BLEEDING NOTED , ABD AND GROIN SOFT, EXTREMITY COOL TO TOUCH , POST TIB PULSE DOPPLERED, PT TOLERATING WELL , CALL LIGHT WITHIN REACH , SPOUSE AT BEDSIDE.
--- NOTE | 2020-10-22 11:45 | NUR ---
RIGHT LEG MOTTLED AND COOL TO TOUCH, FEMSTOP IN PLACE AT 110mmHG DIFFICULT TO OBTAIN DOPPLER PULSE, NO OOZING OR BLEEDING AT SITE, FEMSTOP RELEASED DOWN TO 80mmHG EXTREMITY IMMEDIATELY RETURNED TO PINK AND WARM AND STRONG POST TIB PULSE DOPPLERED. PT ABLE TO MOVE DIGITS AND SENSATION INTACT, SBP 86 FLUID CHALLENAGE GIVEN WITH RETURN SBP 120 DBP 72, PT DENIES PAIN AT THIS TIME, DENIES BATHROOM NEEDSM, SR WITH RATE 62 AND NO ECTOPY, CALL LIGHT WITHIN REACH
--- NOTE | 2020-10-22 11:50 | NUR ---
PT PLACED IN TRENDELENBERG AND GIVEN 100CC NS BOLUS FOR SBP 86, SBP NOW 89 WITH REPEAT OF SBP 120.
--- NOTE | 2020-10-22 12:00 | NUR ---
PT RESTING QUIETLY AWAKE AND ALERT, BP 120/72 HR 65 , RIGHT GROIN WITH FEMSTOP INPLACE @ 80 mmHG AREA SOFT WITH NO OOZING OR BLEEDING , EXTREMITY PINK AND WARM AND POST TIB PULSE EASILY DOPPLERED, MOVES DIGITS. IV INFUSING PER ORDERS, DENIES PAIN OR NEEDS, PLAN OF CARE AND TIME FRAME LYING FLAT GIVEN.
--- NOTE | 2020-10-22 12:35 | NUR ---
FEMSTOP RELEASED DOWN TO 59mmHG RIGHT GROIN AND ABD SOFT NO OOZING OR BLEEDING NOTED EXTREMITY PINK AND WARM , POST TIB PULSE DOPPLERED , MOVES DIGITS, BP 167/89 HR 63 IV INFUSING PER ORDERS, PT REQUEST SIPS OF WATER/GIVEN. CALL LIGHT WITHIN REACH.
--- NOTE | 2020-10-22 13:00 | NUR ---
RIGHT GROIN STABLE, NO OOZING OR BLEEDING , ABD SOFT NON TENDER AND AROUND FEMSTOP SOFT, FEMSTOP @ 59mmHG RELEASED TO 38mmHG , EXTREMITY PINK AND WARM AND POST TIB PULSE DOPPLERED, PT TOLERATING , BP 146/84 HR 61 WITH NO ECTOPY, IV INFUSING PER ORDERS, PT DENIES NEEDS AT THIS TIME, CALL LIGHT WITHIN REACH
--- NOTE | 2020-10-22 13:18 | NUR ---
FEMSTOP PRESSURE RELEASED TO 0mmHG, RIGHT GROIN SOFT/ABD SOFT NON TENDER NO OOZING OR BLEEDING , RIGHT LOWER EXTREMITY PINK AND WARM PEDAL PULSE DOPPLERED. BP 150/74 HR 62, IV INFUSING PER ORDERS , PT DENIES PAIN OR NEEDS REMAINS SUPINE POSITION. SPOUSE AT BEDSIDE, CALL LIGHT WITHIN REACH
--- NOTE | 2020-10-22 13:31 | NUR ---
RIGHT GROIN WITHOUT BLEEDING OR OOZING , AREA AROUND FEMSTOP SOFT AND ABD SOFT AND NONTENDER, EXTREMITY PINK AND WARM AND PEDAL PULSE PALPABLE, BP 148/78 HR 69.
--- NOTE | 2020-10-22 13:38 | HP ---
PATIENT: JAMSHID SANCHEZ MEDICAL RECORD: [id number] ACCOUNT: [id number] LOCATION:DULCE : 40 ADMISSION DATE: 10/22/20 PCP: EMMANUEL LUCAS MD HISTORY AND PHYSICAL EXAMINATION HISTORY OF PRESENT ILLNESS: An 80-year-old gentleman with known history of coronary artery disease, status post recent LAD, had a 2-vessel disease via nuclear stress test. He was found to have high calcific disease of the right. He is being brought back for a Diamondback debulked calcium load prior to any other intervention if needed. PAST MEDICAL HISTORY: Includes; 1. History of hypertension. 2. Hyperlipidemia. 3. Atrial fibrillation. PHYSICAL EXAMINATION: GENERAL: Pleasant. No acute distress. Appears stated age. HEENT: Normocephalic, atraumatic. NECK: No JVD or carotid bruit. CARDIOVASCULAR: Regular. LUNGS: Good air excursion. ABDOMEN: Soft and nontender. EXTREMITIES: Pulses 2+. No edema. IMPRESSION: Intervention on the right today. TRANSINT:[id number] Voice Confirmation ID: [id number] DOCUMENT ID: [id number] BAN CISNEROS MD at 1338 CC: [id number] DICTATION DATE: 10/22/20 0857 PASTRYCOOK: 10/22/20 1225 [facility] [address] [place] [address]
--- NOTE | 2020-10-22 13:41 | NUR ---
FEMSTOP RELEASED FROM RIGHT GROIN, AREA SOFT AND ABD NON TENDER, NO OOZING OR BLEEDING, PT DENIES PAIN, EXTREMITY PINK AND WARM AND PEDAL PULSE PALPABLE, BP 149/78 HR 60, PT DENIES NEEDS , CALL LIGHT WITHIN REACH
--- NOTE | 2020-10-22 13:54 | NUR ---
2 X 2 AND OPSITE APPLIED TO RIGHT GROIN REMAINS SOFT WITH NO OOZING OR BLEEDING OR PAIN, EXTREMITY PINK AND PEDAL PULSE PALPABLE, MOVES ALL DIGITS , BP 150/77 HR 68
--- NOTE | 2020-10-22 14:10 | NUR ---
PT PLACED IN SEMI FOWLERS POSITION AND SANDWICH GIVEN WITH PO FLUIDS, RIGHT GROIN STABLE WITH NO SIGNS OF OOZING OR BLEEDING , EXTREMITY PINK AND WARM , PEDAL PULSE PALPABLE, MOVES ALL DIGITS, DENIES PAIN OR NEEDS, BP 163/78 HR 74 SR WITH NO ECTOPY, IV INFUSING PER ORDERS, CALL LIGHT WITHIN REACH
--- NOTE | 2020-10-22 14:30 | NUR ---
DISCHARGE TEACHING STARTED AND COMPLETED , PT AND SPOUSE VERBALIZE UNDERSTANDING, RIGHT GROIN REMAINS STABLE WITHOUT SIGN OF OOZING OR BLEEDING OPSTIE C/D/I, RT ABD AND GROIN SOFT, EXTREMITY PINK AND WARM AND PEDAL PULSE PALPABLE, BP 166/89 HR 68 , PT DENIES NEEDS OR PAIN, PT CONSUMED 100% SANDWICH BOX. CALL LIGHT WITHIN REACH
--- NOTE | 2020-10-22 14:45 | NUR ---
PT IV REMOVED 22G LEFT FA CATHETER INTACT DRESSING APPLIED, RIGHT GROIN STABLE NO OOZING OR BLEEDING , SOFT , EXTREMITY PINK AND WARM PEDAL PULSE PALPABLE, DENIES PAIN , DRESSED WITH ASSISTANCE FROM SPOUSE, AMBULATES TO BATHROOM VOIDS WITHOUT DIFFICULTY, DISCHARGE INSTRUCTIONS REVIEWED AGAIN VERBALIZED UNDERSTANDING
--- NOTE | 2020-10-22 15:00 | NUR ---
PT DISCHARGED PER ORDERS , TAKEN TO FAMILY CAR VIA WHEELCHAIR, PT HAS NO QUESTIONS OR CONCERNS AT THIS TIME
== END 2020-10-22 15:00 | disposition home or self-care (01) ==
LOC: D.CATH 07:01
PROVIDERS: ATTEND Internal Medicine Interventional Cardiology
DX: I48.91 Unspecified atrial fibrillation (principal); I25.119 Atherosclerotic heart disease of native coronary artery with unspecified angina pectoris; I10 Essential (primary) hypertension; E78.5 Hyperlipidemia, unspecified; R94.30 Abnormal result of cardiovascular function study, unspecified